=== PATIENT | male | born 1960 | race Caucasian/White ===

== ENCOUNTER 2022-12-27 17:19 | Emergency (ER) | payer MEDICARE, BC, SELFPAY ==
[2022-12-27 17:28] VITALS: BP 147/86; PULSE 82; RESP 16; TEMP 36.8; O2SAT 96; BMI 32.3
--- NOTE | 2022-12-27 18:03 | ED.SKABFB ---
HPI - Skin/Abscess/Foreign Bdy General Chief complaint: Skin/Abscess/Foreign Body Stated complaint: R left bite/swelling redness 3 days ago Time Seen by Provider: 12/27/22 17:45 History of Present Illness HPI narrative: This patient comes in with an area of redness that is increased on the right posterior lower leg in the mid calf region. He shows me a picture of how it looked a day or 2 before and it has increased in size. He does not report any injury event or insect bite. He states that it feels like a burning sensation and occasionally there is some itchy component. He does have some mild swelling. He does not report any fever and otherwise is in good health. Related Data Home Medications Medication Instructions Recorded Confirmed aspirin 81 mg capsule 81 mg PO DAILY 12/27/22 12/27/22 atorvastatin 40 mg tablet 40 mg PO DAILY 12/27/22 12/27/22 gabapentin 300 mg capsule 300 mg PO 3XD 12/27/22 12/27/22 meclizine 25 mg tablet 25 mg PO 3XD PRN vertigo 12/27/22 12/27/22 quetiapine 25 mg tablet 25 mg PO QPM PRN insomnia 12/27/22 12/27/22 valsartan 160 1 tab PO DAILY 12/27/22 12/27/22 mg-hydrochlorothiazide 25 mg tablet Previous Rx's Medication Instructions Recorded triamcinolone acetonide 0.1 % 1 applic topical BID #15 grams 12/27/22 topical cream Allergies Allergy/AdvReac Type Severity Reaction Status Date / Time bee venom protein (honey bee) Allergy Severe Anaphylaxis Verified 12/27/22 17:34 Review of Systems Status of ROS: Reports: 10 or more systems reviewed and unremarkable except as noted in History and below Narrative: Constitutional: No fevers, no weight gain or loss. Eyes: No discharge. No vision changes. HENT: No congestion, no sore throat, no ear pain. Cardiovascular: No chest pain, no palpitations. Respiratory: No shortness of breath, no wheezes, no cough. Gastrointestinal: No abdominal pain, no vomiting, no diarrhea. Genitourinary: No dysuria, no hematuria. Musculoskeletal: Normal range of motion. Skin: Area of redness with mild swelling on the right posterior calf. Neurological: No dizziness, weakness, sensory change, speech change. Endo/Heme/Allergies: No bruising or bleeding. No polydipsia. Pysch: no suicidality, no anxiety, no insomnia. All other systems reviewed and are negative. PFSH PFSH Social History Smoking Status: Former smoker Do you use any of these nicotine containing products: None Second hand tobacco smoke exposure: No How often do you have a drink containing alcohol: never AUDIT-C Alcohol total score: 0 Non-prescribed substance use: marijuana (any form) service: No Exam Narrative: Exam Narrative: Constitutional: Well-developed, well-nourished, no acute distress. HEENT: Normocephalic, atraumatic. Neck: Normal range of motion. Nontender. Supple. Heart: Intact distal pulses. Lungs: No chest discomfort. No wheezes, rhonchi, or rales. Abdomen: Nontender. Back: Normal range of motion. Extremities: Normal range of motion. No injury. Skin: Intact. Skin appears normal except for a approximately 8 cm diameter area of erythema on the right posterior calf midway between the ankle and the knee. There is no drainage or skin breakdown. There is some mild swelling in this area. Neurologic: No altered sensation. No weakness. Alert and oriented. Psychiatric: No suicidality. No anxiety or depression. No insomnia. Nursing notes and vitals signs are reviewed. Const: Vital Signs, click to edit/add: Vital Signs - 24 hr 12/27/22 17:28 Temperature 98.3 F Pulse Rate [Pulse Oximeter] 82 Respiratory Rate 16 Blood Pressure [Ri ght Upper Arm] 147/86 H Pulse Oximetry 96 Oxygen Delivery Me thod Room Air Course Vital Signs Vital signs: Initial Vital Signs Temperature 98.3 F 12/27/22 17:28 Temperature Source Temporal Artery Scan 12/27/22 17:28 Pulse Rate 82 12/27/22 17:28 Respiratory Rate 16 12/27/22 17:28 Blood Pressure 147/86 H 12/27/22 17:28 Blood Pressure Mean 106 H 12/27/22 17:28 Blood Pressure Position Sitting 12/27/22 17:28 Pulse Oximetry 96 12/27/22 17:28 Oxygen Delivery Method Room Air 12/27/22 17:28 Vital Signs Temperature 98.3 F 12/27/22 17:28 Pulse Rate 82 12/27/22 17:28 Respiratory Rate 16 12/27/22 17:28 Blood Pressure 147/86 H 12/27/22 17:28 Pulse Oximetry 96 12/27/22 17:28 Oxygen Delivery Method Room Air 12/27/22 17:28 Temperature 98.3 F 12/27/22 17:28 Pulse Rate 82 12/27/22 17:28 Respiratory Rate 16 12/27/22 17:28 Blood Pressure 147/86 H 12/27/22 17:28 Pulse Oximetry 96 12/27/22 17:28 Oxygen Delivery Method Room Air 12/27/22 17:28 MDM - Skin/Abscess/Foreign Bdy MDM Narrative Medical decision making narrative: This patient comes in with an area in his right lower leg that appears to be like cellulitis. It has been expanding over the past day or 2 but there is no sign of systemic symptoms. I did discuss lab and imaging options with the patient. The patient received a prescription for Keflex and triamcinolone cream. I did describe signs and symptoms that would indicate a need for return and re-evaluation. Discharge Plan Discharge Clinical Impression: Cellulitis Patient Disposition: Home, Self-Care Condition: Stable Additional Instructions: Take medication as needed and indicated. Follow up with MD return if symptoms are worsening. Prescriptions: New triamcinolone acetonide 0.1 % cream 1 applic topical BID Qty: 15 0RF No Action quetiapine 25 mg tablet 25 mg PO QPM PRN (Reason: insomnia) atorvastatin 40 mg tablet 40 mg PO DAILY meclizine 25 mg tablet 25 mg PO 3XD PRN (Reason: vertigo) gabapentin 300 mg capsule 300 mg PO 3XD valsartan-hydrochlorothiazide 160-25 mg tablet 1 tab PO DAILY aspirin 81 mg capsule 81 mg PO DAILY Stand Alone Forms: [employer] Info Instructions
--- OUTSIDE RECORDS SUMMARY | 2022-12-27 18:59 | XMS_ITS | Continuity of Care Document ---
Author Name Unknown Organization [facility] Address [address] [place] [address] Phone Care Team Providers Care Tin Stacker Name Role Phone Maikel Rizvi MD Unavailable Unavailable Allergies, Adverse Reactions, Alerts Substance Reaction Status Criticality No Known Allergies Active No Inform ation Medications Medication Instructions Dosage Effective Dates (start - stop) Status Comments RIOMET (unknown strength) Not Available - Active TIZANIDINE HCL (unknown strength) Not Available - Active NORTRIPTYLINE HCL (unknown strength) Not Available - Active FLEXERIL (unknown strength) Not Available - Active OXYCODONE HCL (unknown strength) Not Available - Active OXYCONTIN (unknown strength) Not Available - Active ALBUTEROL SULFATE (unknown strength) Not Available - Active ADVAIR DISKUS (unknown strength) Not Available - Active LYRICA (unknown strength) Not Available - Active LOVASTATIN (unknown strength) Not Available - Active ADVIL (unknown strength) Not Available - Active DIOVAN (unknown strength) Not Available - Active NEURONTIN (unknown strength) Not Available - Active ASPIRIN (unknown strength) Not Available - Active Procedures Procedure Date Office/Outpatient Visit,Est, Mod 2014 Office/Outpatient Visit,New, Mod 2012 Advance Directives Directive Yes / No Effective Date File Name No Information Encounters Encounter Description Practice Location Reason(s) For Visit Diagnoses Date Provider Providers Copied on Encounter [facility], [address], [place], [place], [id number], [place] tel:[phone] [facility] No Information Apr-0 7-201 6 Belkys Ko. [facility], [address], [place], [place], [id number] , [place]. [phone] Office/Outpa tient Visit,Est, Mod [facility], [address], [place], [place], [id number], [place] tel:[phone] [facility] - Rachel OVERWEIGHTHype rtension, UnspecifiedDeg eneration of lumbar or lumbosacral intervertebral discLumbar pain 5 Mehbod Amir. [facility], [address] [place] [address] [address], [place], [place], [id number] , [place]. [phone] Referring Provider: Dionisio Alcazar, [facility] [address] [place], [address]. tel:[phone] Office/Outpa tient Visit,New, Mod Z [facility], [address], [place], [address], [place] [phone] [facility] - Rachel AsthmaCOPDHype rtension, Unspecified 3 Mehbod Amir. [facility], [address], [place], [place], [id number] , [place]. [phone] Referring Provider: Dionisio Alcazar, [facility] [address] [place], [address]. tel:[phone] Family History Family Member Type Diagnosis Age At Onset No Information Payers Payer name Insurance type Covered libertarian ID Authoriza tion(s) Medicare [place] [id number] [facility] [id number] [facility] [id number] Social History Type Description Quantity Date Captured Comments Sex Male Smoking Status No Information Chief Complaint And Reason For Visit No Information Reason For Referral Reason For Referral No Information History Of Present Illness Encounter Date Complaint History Of Prese nt Illness No Information Functional Status Date Functional Assessmen t No Information Instructions Date Instruction Additional Infor matfroylan Weight Management Related to Ove rweight Exercise education Related to Un specified Essential Hypertension Assessments Type Assessment Date No Information Patient Care Teams Name Effective Dates (start - stop) Status Members No Information
== END 2022-12-27 18:45 | disposition home or self-care (01) ==
LOC: ED 18:57
PROVIDERS: Emergency Provider Emergency Medicine Emergency Medical Services
DX: L03.115 Cellulitis of right lower limb (principal)
CPT/HCPCS: 99283; 99284

== ENCOUNTER 2024-07-21 17:24 | Emergency (ER) | payer MEDICARE, BC, SELFPAY ==
[2024-07-21] VITALS (17 sets, daily range): BP systolic 133–160; BP diastolic 81–111; PULSE 86–121; RESP 8–24; TEMP 36.9; O2SAT 93–96; BMI 32.5
--- OUTSIDE RECORDS SUMMARY | 2024-07-21 17:27 | XMS_ITS | Continuity of Care Document ---
Author Organization [facility] Address [address] [place] [address] Phone Care Team Providers Care Trial Justice Name Role Phone Paul Irving MD Unavailable Unavailable Allergies, Adverse Reactions, Alerts Substance Reaction Status Criticality cider vinegar Swelling, Throat Closes Active No Information venom-honey bee anaphylaxis Active No Informati on Medications Medication Instructions Dosage Effective Dates (start - stop) Status Comments albuterol sulfate HFA 90 mcg/actuation aerosol inhaler inhale 2 puff by inhalation route every 4 - 6 hours as needed - Active aspirin 81 mg chewable tablet chew 1 tablet by oral route every day 81 MG - Active atorvastatin 40 mg tablet take 1 tablet by oral route every day 40 MG - Active Diovan HCT 160 mg-25 mg tablet take 1 tablet by oral route every day 1.00 tablet - Active Flovent HFA 44 mcg/actuation aerosol inhaler inhale 2 puff by inhalation route 2 times every day - Active EpiPen 2-Franko 0.3 mg/0.3 mL (1:1,000) injection,auto-injec tor inject 0.3 milliliter by intramuscular route once as needed for anaphylaxis 0.3 MG - Active Procedures Procedure Date Pt Seen-No Charge, Per Physician 2021 Global Postop Visit Implant SCS IPG Implant SCS IPG Anes- All Integ Neck Incl Subq 21 Trans Epid Cerv/Thor 1 level Trans Epid Cerv/Thor each addl 21 Inj Anes Epidur; Cerv/thor-ea 1 Inj Anes Epidur; Cerv/thor 1 L 21 Methylprednisolone Acetate-40 1 Change Control for Diagnosis(s) 021 Change Control for Pharmaceuticals Est Pt Eval 25 Min Trans Epid Cerv/Thor 1 level Trans Epid Cerv/Thor each addl 20 Moderate Sedation (older Than 5 Years) A Change Control for Procedure(s): 2019 Inj Anes Epidur; Cerv/thor 1 L 20 Inj Anes Epidur; Cerv/thor-ea 0 Methylprednisolone Acetate-40 0 Change Control for Diagnosis(s) 020 Change Control for Pharmaceuticals Est Pt Eval 25 Min Toxicology Test Group C PT Eval - Low Complexity Therapeutic Activities Mobility: Walking & Moving Around, Goal Mobility: Walking & Moving Around, Curre nt Mobility: Walking & Moving Around, Disch arge Est Pt Eval 25 Min Est Pt Eval 25 Min Global Postop Visit Revise/Remove SCS IPG Stim Analysis W Reprog Revision Of Spinal Neurostimulator [facility] Revision Of Spinal Neurostimulator [facility] Revise/Remove SCS IPG Adverse Events did not occur Revision Of Spinal Neurostimulator [facility] Revise/Remove SCS (IPG) Est Pt Eval 25 Min No Charge Est Pt Eval 25 Min Toxicology Test Group C Est Pt Eval 25 Min Global Postop Visit Implant SCS IPG Revise/Remove SCS IPG Fluoro Guidance - Spine Implant SCS IPG Est Pt Eval 25 Min Est Pt Eval 15 Min Est Pt Eval 25 Min Est Pt Eval 15 Min Global Postop Visit Stim Analysis W Reprog Implant SCS Epi Lead Implant SCS IPG Implant SCS Epidi Lead Implant SCS Epidi Lead Implant SCS Epidi Lead Implant SCS Epidi Lead Implant SCS IPG Implant SCS IPG Est Pt Eval 25 Min Est Pt Eval 25 Min Est Pt Eval 25 Min Global Postop Visit Stim Analysis W Reprog Implant SCS Epi Lead Moderate Sedation (older Than 5 Years) J Moderate Sedation (older Than 5 Years) A ddl 15 Min Implant SCS Epidi Lead Implant SCS Epidi Lead Implant SCS Epidi Lead Implant SCS Epidi Lead Moderate Sedation (older Than 5 Years) J Moderate Sedation (older Than 5 Years) A ddl 15 Min Est Pt Eval 25 Min Moderate Sedation (older Than 5 Years) J Dx Lumbar Disco Moderate Sedation (older Than 5 Years) A ddl 15 Min Diskography Lumbar-rad S & I Dx Lumbar Disco Dx Lumbar Disco Dx Lumbar Disco Adverse Events did not occur Prophylactic IV antibiotic initiated on time DX Lumbar Disco DX Lumbar Disco DX Lumbar Disco Lumbar Disco Radiology Lumbar Disco Radiology Lumbar Disco Radiology Moderate Sedation (older Than 5 Years) J Est Pt Eval 25 Min PT Eval - Low Complexity Therapeutic Exercise Neuromuscular Re-education Mobility: Walking & Moving Around, Curre nt Mobility: Walking & Moving Around, Goal Est Pt Eval 25 Min Est Pt Eval 25 Min Est Pt Eval 25 Min Toxicology Test Group B RF Cervical/Thoracic Single Level RF Cervical/Thoracic Addt'l Level RF Cervical/Thoracic Single Level RF Cervical/Thoracic Addt'l Level Adverse Events did not occur Patient without preop order for prophyla ctic IV an Est Pt Eval 25 Min RF Cervical/Thoracic Single Level RF Cervical/Thoracic Addt'l Level RF Cervical/Thoracic Addt'l Level RF Cervical/Thoracic Single Level RF Cervical/Thoracic Single Level RF Cervical/Thoracic Addt'l Level Adverse Events did not occur Patient without preop order for prophyla ctic IV an RF Cervical/Thoracic Single Level RF Cervical/Thoracic Addt'l Level Est Pt Eval 25 Min Psychiatric Diagnostic Evaluation Inj Anes Facet Jt; Cerv/thor-2nd Level O Inj Anes Facet Jt; Cerv/thor-1st Level O Inj Anes Facet Jt; Cerv/thor-1st Level O Inj Anes Facet Jt; Cerv/thor-1st Level O Inj Anes Facet Jt; Cerv/thor-2nd Level O Adverse Events did not occur Patient without preop order for prophyla ctic IV an Inj Anes Facet Jt; Cerv/thor-2nd Level O Inj Anes Facet Jt; Cerv/thor-1st Level O Inj Anes Facet Jt; Cerv/thor-2nd Level O Inj Anes Facet Jt; Cerv/thor-2nd Level S Inj Anes Facet Jt; Cerv/thor-1st Level S Inj Anes Facet Jt; Cerv/thor-1st Level S Inj Anes Facet Jt; Cerv/thor-1st Level S Inj Anes Facet Jt; Cerv/thor-2nd Level S Inj Anes Facet Jt; Cerv/thor-2nd Level S Phys Therap Eval Therapeutic Procedure Neuromuscular Re-education Mobility: Walking & Moving Around, Goal Mobility: Walking & Moving Around, Curre nt Mobility: Walking & Moving Around, Disch arge Est Pt Eval 25 Min Inj Anes Facet Jt; Cerv/thor-1st Level S Inj Anes Facet Jt; Cerv/thor-2nd Level S Est Pt Eval 25 Min Inj Not Lytic-epidur; Cerv/tho 16 Adverse Events did not occur Patient without preop order for prophyla ctic IV an Epid/SAB Cerv/Thor Est Pt Eval 25 Min Inj Not Lytic-epidur; Cerv/tho 16 Adverse Events did not occur Patient without preop order for prophyla ctic IV an Est Pt Eval 25 Min Epid/SAB Cerv/Thor Est Pt Eval 15 Min Est Pt Eval 15 Min Inj Not Lytic-epidur; Cerv/tho 15 Adverse Events did not occur Patient without preop order for prophyla ctic IV an Epid/SAB Cerv/Thor Est Pt Eval 15 Min Pain Assessment And Follow Up Plan Docum ented Inj Not Lytic-epidur; Cerv/tho 15 IV Cons Sed First 30M Fluoro Guidance - Spine Inj Not Lytic-epidur; Cerv/tho 15 Adverse Events did not occur Patient without preop order for prophyla ctic IV an Epid/SAB Cerv/Thor Inj Anes Epidur; Lumb/sac 1 Le 15 IV Cons Sed First 30M Inj Anes Epidur; Lumb/sac 1 Le 15 Phys Therap Eval Mobility: Walking & Moving Around, Goal Mobility: Walking & Moving Around, Curre nt Inj Anes Epidur; Lumb/sac 1 Le 15 IV Cons Sed First 30M Inj Anes Epidur; Lumb/sac 1 Le 15 Adverse Events did not occur Patient without preop order for prophyla ctic IV an Inj Anes Epidur; Lumb/sac 1 Le 15 New Pt Eval 45 Min Drug screen, other than chromatographic Pain Assessment And Follow Up Plan Docum ented Advance Directives Directive Yes / No Effective Date File Name Resuscitation Not Answered N/A N/A Life Support Not Answered N/A N/A Intubation Not Answered N/A N/A Antibiotics Not Answered N/A N/A IV Fluid Support Not Answered N/A N/A Tube Feed Not Answered N/A N/A Other Directive N/A N/A WARNING:The information contained in this section is historical and is provided for information only and does not constitute a legal document or any assurance that the information is still accurate. Please verify the information with the bennett of the legal document before using it for clinical purposes. Encounters Encounter Description Practice Location Reason(s) For Visit Diagnoses Date Provider Providers Copied on Encounter DREW Marsh, [address], [place], [place], [id number], [place] tel:[phone] [facility] No Information 5 Maria Fernanda Miller. [address], [place], [address], [place]. tel:[phone] Referring Provider: Brent Spence V, [address] [place] [address] [place], [address]. tel:[phone] [facility], [address], [place], [place], [address], [place] tel:[phone] [facility] Postlaminectom y syndrome, not elsewhere classified Fe 2 RN RN. [address], [place], [address], [place]. tel:[phone] Referring Provider: Ancelmo Meraz IV, [address] [place] [address], [address]. tel:[phone] [facility], [address], [place], [address], [place] tel:[phone] [facility] back pain (chief complaint) Postlaminectom y syndrome, not elsewhere classifiedRadi culopathy, thoracic region 1 RN RN. [address], [place], [address], [place]. tel:[phone] Referring Provider: Ancelmo Meraz IV, [facility] [address] [place] [address], [address]. tel:[phone] [facility], [address], [place], [address], [place] tel:[phone] [facility] No Information 1 Shasta Stokes. [address], [address], [place]. tel:[phone] Referring Provider: Ancelmo Meraz IV, [facility] [address] [place] [address], [address]. tel:[phone] [facility], [address], [place], [address], [place] tel:[phone] [facility] back pain (chief complaint) Radiculopathy, thoracic regionOther intervertebral disc degeneration, thoracic regionPain in thoracic spineOpioid dependence, uncomplicated 1 [facility]. [address], [place], [place], [address], [place]. tel:[phone] Referring Provider: Sherman Jensen, [address], [place], [address] . tel:[phone] [facility], [address], [place], [place], [address], [place] tel:[phone] [facility] No Information 1 Jono Reynolds. [address], [place], [place], [address], [place]. tel:[phone] Referring Provider: Sherman Jensen, [address], [place], [address] . tel:[phone] [facility], [address], [place], [place], [address], [place] tel:[phone] [facility] No Information 1 Maria Fernanda Whitaker. [address], [place], [place], [address], [place]. tel:[phone] Referring Provider: Sherman Jensen, [address], [place], [address] . tel:[phone] [facility], [address], [place], [address], [place] tel:[phone] [facility] right shoulder pain (chief complaint) Radiculopathy, thoracic regionPain in thoracic spineRadiculop athy, thoracic regionPain in thoracic spine 1 [facility]. [address], [place], [place], [address], [place]. tel:[phone] Referring Provider: Sherman Jensen, [address], [place], [address] . tel:[phone] Est Pt Eval 25 Min [facility], [address], [place], [place], [address], [place] tel:[phone] [facility] back pain (chief complaint) Radiculopathy, thoracic regionOther spondylosis with radiculopathy, lumbar region 1 Lincoln George. [address], [place], [address], [place]. tel:[phone] Referring Provider: Ancelmo Meraz IV, [address] [place] [address], [place], [address]. tel:[phone] [facility], [address], [place], [address], [place] tel:[phone] [facility] back pain (chief complaint) Radiculopathy, thoracic regionIntvrt disc disorders w radiculopathy, thoracic regionPain in thoracic spine 0 [facility]. [address], [place], [place], [address], [place]. tel:[phone] Referring Provider: Sherman Jensen, [address], [place], [address] . tel:[phone] [facility], [address], [place], [place], [address], [place] tel:[phone] [facility] No Information 0 Maria Fernanda Whitaker. [address], [place], [place], [address], [place]. tel:[phone] Referring Provider: Sherman Jensen, [address], [place], [address] . tel:[phone] Est Pt Eval 25 Min [facility], [address], [place], [address], [place] tel:[phone] [facility] back pain (chief complaint) Pain in thoracic spinePostlamin ectomy syndrome, not elsewhere classified 0 Maria Fernanda Miller. [address], [place], [address], [place]. tel:[phone] Referring Provider: Ancelmo Meraz IV, [facility] [address] [place] [address], [place], [address]. tel:[phone] [facility], [address], [place], [address], [place] tel:[phone] [facility] No Information 0 Maria Fernanda Miller. [address], [place], [address], [place]. tel:[phone] Referring Provider: Ancelmo Meraz IV, [facility] [address] [place] [address], [place], [address]. tel:[phone] [facility], [address], [place], [address], [place] tel:[phone] [facility] [address] Pain in thoracic spinePain in thoracic spinePain in thoracic spine Mar-2 3-201 8 Ilana Ledesma. [address], [place], [address], [place]. tel:[phone] Referring Provider: Jane Neal, [address], [place], [address] . tel:[phone] Est Pt Eval 25 Min [facility], [address], [place], [place], [address], [place] tel:[phone] [facility] back pain (chief complaint) Postlaminectom y syndrome, not elsewhere classifiedOthe r cervical disc displacement at C6-C7 levelOther intervertebral disc degeneration, thoracic regionOther intervertebral disc degeneration, lumbar regionOther intervertebral disc degeneration, lumbosacral regionLong term (current) use of opiate analgesic 8 No Information Referring Provider: Jane Neal, [address], [place], [address] . tel:[phone] Est Pt Eval 25 Min [facility], [address], [place], [place], [address], [place] tel:[phone] [facility] back pain (chief complaint) bilateral neck pain (chief complaint) Cervical disc disorder at C6-C7 level with radiculopathyO ther intervertebral disc degeneration, thoracic regionOther intervertebral disc degeneration, lumbar regionOther intervertebral disc degeneration, lumbosacral regionLong term (current) use of opiate analgesicPostl aminectomy syndrome, not elsewhere classified 8 No Information Referring Provider: Jane Neal, [address], [place], [address] . tel:[phone] [facility], [address], [place], [place], [address], [place] tel:[phone] [facility] back pain (chief complaint) back pain (chief complaint) Postlaminectom y syndrome, not elsewhere classified 8 Maria Fernanda Whitaker. [address], [place], [place], [address], [place]. tel:[phone] Referring Provider: Jane Neal, [address], [place], [address] . tel:[phone] [facility], [address], [facility] [address], [place], [address], [place] tel:[phone] [facility] back pain (chief complaint) bilateral neck pain (chief complaint) Oth complication of nervous system prosth dev/grft, sequelaPostlam inectomy syndrome, not elsewhere classifiedIntv rt disc disorders w radiculopathy, thoracic regionOpioid dependence, uncomplicated [facility]. [address], [place], [place], [address], [place]. tel:[phone] Referring Provider: Sherman Jensen, [address], [place], [address] . tel:[phone] [facility], [address], [place], [place], [address], [place] tel:[phone] [facility] No Information 8 Maria Fernanda Whitaker. [address], [place], [place], [address], [place]. tel:[phone] Referring Provider: Sherman Jensen, [address], [place], [address] . tel:[phone] Est Pt Eval 25 Min [facility], [address], [place], [place], [address], [place] tel:[phone] [facility] bilateral neck pain (chief complaint) Postlaminectom y syndrome, not elsewhere classifiedCerv ical disc disorder at C6-C7 level with radiculopathyO ther intervertebral disc degeneration, thoracic regionOther intervertebral disc degeneration, lumbar regionOther intervertebral disc degeneration, lumbosacral regionLong term (current) use of opiate analgesic No Information Referring Provider: Jane Neal, [address], [place], [address] . tel:[phone] [facility], [address], [address] [facility] [address], [place], [address], [place] tel:[phone] [facility] No Information Darrian Ward. [address], [place], [place], [address], [place]. tel:[phone] Referring Provider: Aamir Downey, [address] [facility] , [place], [address]. tel:[phone] Est Pt Eval 25 Min [facility], [address], [place], [place], [address], [place] tel:[phone] [facility] bilateral neck pain (chief complaint) Postlaminectom y syndrome, not elsewhere classifiedCerv ical disc disorder at C6-C7 level with radiculopathyO ther intervertebral disc degeneration, thoracic regionOther intervertebral disc degeneration, lumbar regionOther intervertebral disc degeneration, lumbosacral regionLong term (current) use of opiate analgesic No Information Est Pt Eval 25 Min [facility], [address], [place], [place], [address], [place] tel:[phone] [facility] back pain (chief complaint) Postlaminectom y syndrome, not elsewhere classifiedCerv ical disc disorder at C6-C7 level with radiculopathyO ther intervertebral disc degeneration, thoracic regionOther intervertebral disc degeneration, lumbar regionOther intervertebral disc degeneration, lumbosacral regionLong term (current) use of opiate analgesic 7 No Information Referring Provider: Jane Neal, [address] [facility] [address], [place], [address] . tel:[phone] [facility], [address], [place], [place], [address], [place] tel:[phone] [facility] back pain (chief complaint) Postlaminectom y syndrome, not elsewhere classifiedRadi culopathy, cervical region RN RN. [address], [place], [place], [address], [place]. tel:[phone] Referring Provider: Jane Neal, [address] [facility] [address], [place], [address] . tel:[phone] [facility], [address], [address], [place], [address], [place] tel:[phone] [facility] back pain (chief complaint) bilateral neck pain (chief complaint) Cervical disc disorder at C6-C7 level with radiculopathyO ther cervical disc displacement at C6-C7 levelCervical disc disorder at C6-C7 level with radiculopathyO ther cervical disc displacement at C6-C7 level 7 Ace Rutledge. [address], [facility] [place], [address], [place]. tel:[phone] Referring Provider: Aamir Downey, [address] [facility] [place], [address]. tel:[phone] [facility], [address], [place], [place], [address], [place] tel:[phone] [facility] No Information Samuel Rutledge. [address], [facility] [place], [address], [place]. tel:[phone] Referring Provider: Aamir Downey, [address] [facility] [place], [address]. tel:[phone] Est Pt Eval 25 Min [facility], [address], [place], [place], [address], [place] tel:[phone] [facility] back pain (chief complaint) Other intervertebral disc degeneration, thoracic regionOther intervertebral disc degeneration, lumbar regionOther intervertebral disc degeneration, lumbosacral regionLong term (current) use of opiate analgesicPostl aminectomy syndrome, not elsewhere classifiedCerv ical disc disorder at C6-C7 level with radiculopathy 7 No Information Referring Provider: Jane [place], [address], [place], [address] . tel:[phone] Est Pt Eval 15 Min [facility], [address], [place], [place], [address], tel:[phone] [facility] back pain (chief complaint) Other intervertebral disc degeneration, lumbar regionOther intervertebral disc degeneration, lumbosacral regionLong term (current) use of opiate analgesicPostl aminectomy syndrome, not elsewhere classifiedOthe r cervical disc displacement at C6-C7 levelOther intervertebral disc degeneration, thoracic region 7 No Information Referring Provider: Jane Neal, [address], [place], [address] . tel:[phone] Est Pt Eval 25 Min [facility], [address], [place], [place], [address], [place] tel:[phone] [facility] bilateral neck pain (chief complaint) back pain (chief complaint) FDC (current) use of opiate analgesicPostl aminectomy syndrome, not elsewhere classifiedOthe r cervical disc displacement at C6-C7 levelOther intervertebral disc degeneration, thoracic regionOther intervertebral disc degeneration, lumbar regionOther intervertebral disc degeneration, lumbosacral region 7 No Information Referring Provider: Jane Neal, [address], [place], [address] . tel:[phone] Est Pt Eval 15 Min [facility], [address], [place], [place], [address], tel:[phone] [facility] back pain (chief complaint) Other specified dorsopathies, lumbosacral regionOther intervertebral disc degeneration, lumbar regionOther intervertebral disc degeneration, lumbosacral regionLong term (current) use of opiate analgesicPostl aminectomy syndrome, not elsewhere classifiedOthe r cervical disc displacement at C6-C7 levelOther intervertebral disc degeneration, thoracic region No Information Referring Provider: Jane Neal, [address] [facility] [address], [place], [address] . tel:[phone] [facility], [address], [place], [place], [address], [place] tel:[phone] [facility] back pain (chief complaint) bilateral neck pain (chief complaint) Postlaminectom y syndrome, not elsewhere classified Sep- RN RN. [address] [facility] [address], [address], [place], [place], [address], [place]. tel:[phone] Referring Provider: Jane Neal, [address] [facility] [address], [place], [address] . tel:[phone] [facility], [address] [facility], [address], [place], [address], [place] tel:[phone] [facility] back pain (chief complaint) Postlaminectom y syndrome, not elsewhere classifiedOthe r spondylosis with radiculopathy, lumbar regionOther cervical disc disord, mid-cervical region, unsp levelOpioid dependence, uncomplicated Sep- [facility]. [address] [facility] [address], [place], [place], [address], [place]. tel:[phone] Referring Provider: Sherman Jensen, [address], [place], [address] . tel:[phone] [facility], [address] [facility] [address], [place], [place], [address], [place] tel:[phone] [facility] No Information Dec- Maria Fernanda Whtiaker. [address], [place], [place], [address], [place]. tel:[phone] Referring Provider: Sherman Jensen, [address], [place], [address] . tel:[phone] Est Pt Eval 25 Min [facility], [address] [facility] [address], [place], [place], [address], [place] tel:[phone] [facility] back pain (chief complaint) Postlaminectom y syndrome, not elsewhere classifiedOthe r cervical disc displacement at C6-C7 levelOther intervertebral disc degeneration, thoracic regionOther specified dorsopathies, lumbosacral regionOther intervertebral disc degeneration, lumbar regionOther intervertebral disc degeneration, lumbosacral regionLong term (current) use of opiate analgesic Dec- No Information Referring Provider: Jane Neal, [address] [facility] [address], [place], [address] . tel:[phone] Est Pt Eval 25 Min [facility], [address] [facility] [address], [place], [place], [address], [place] tel:[phone] [facility] Other intervertebral disc degeneration, thoracic regionOther specified dorsopathies, lumbosacral regionOther intervertebral disc degeneration, lumbar regionOther intervertebral disc degeneration, lumbosacral regionLong term (current) use of opiate analgesicPostl aminectomy syndrome, not elsewhere classifiedOthe r cervical disc displacement at C6-C7 level No Information Referring Provider: Jane Neal, [address] [facility] [address], [place], [address] . tel:[phone] Est Pt Eval 25 Min [facility], [address], [place], [place], [address], [place] tel:[phone] [facility] Postlaminectom y syndrome, not elsewhere classifiedOthe r cervical disc displacement at C6-C7 levelOther intervertebral disc degeneration, thoracic regionWeakness Other specified dorsopathies, lumbosacral regionOther intervertebral disc degeneration, lumbar regionOther intervertebral disc degeneration, lumbosacral regionLong term (current) use of opiate analgesic No Information Referring Provider: Jane Neal, [address] [facility] [address], [place], [address] . tel:[phone] [facility], [address] [facility] [address], [place], [place], [address], [place] tel:[phone] [facility] Postlaminectom y syndrome, not elsewhere classified RN RN. [address] [facility] [address], [address], [place], [place], [address], [place]. tel:[phone] Referring Provider: Jane Neal, [address] [facility] [address], [place], [address] . tel:[phone] [facility], [address] [facility], [address], [place], [address], [place] tel:[phone] [facility] Cervical disc disorder at C6-C7 level w radiculopathyP ostlaminectomy syndrome, not elsewhere classifiedInte rvertebral disc disorders w radiculopathy, lumbar regionLumbosac ral root disorder [facility]. [address] [facility] [address], [place], [place], [address], [place]. tel:[phone] Referring Provider: Sherman Jensen, [address], [place], [address] . tel:[phone] [facility], [address], [place], [place], [address], [place] tel:[phone] [facility] No Information 7 Maria Fernanda Whitaker. [address], [place], [place], [address], [place]. tel:[phone] Referring Provider: Sherman Jensen, [address], [place], [address] . tel:[phone] Est Pt Eval 25 Min [facility], [facility], [address] [facility] [address], [place], [place], [address], [place] tel:[phone] [facility] Postlaminectom y syndrome, not elsewhere classifiedOthe r cervical disc displacement, at C6-C7 levelOther intervertebral disc degeneration, thoracic regionOther specified dorsopathies, lumbar regionOther specified dorsopathies, lumbosacral regionOther intervertebral disc degeneration, lumbar regionOther intervertebral disc degeneration, lumbosacral regionLong term (current) use of opiate analgesic No Information Referring Provider: Jane Neal, [address] [facility] [address], [place], [address] . tel:[phone] [facility], [address], [address], [place] tel:[phone] [facility] Low back painOther intervertebral disc degeneration, lumbar region [facility]. [address] [facility] [address], [place], [place], [address], [place]. tel:[phone] Referring Provider: Sherman Jensen, [address], [place], [address] . tel:[phone] [facility], [address] [facility] [address], [place], [place], [address], [place] tel:[phone] [facility] No Information 7 Maria Fernanda Whitaker. [address], [place], [place], [address], [place]. tel:[phone] Referring Provider: Sherman Jensen, [address], [place], [address] . tel:[phone] Est Pt Eval 25 Min [facility], [address] [facility] [address], [place], [place], [address], tel:[phone] [facility] Postlaminectom y syndrome, not elsewhere classifiedPain in thoracic spineOther intervertebral disc degeneration, thoracic regionOther intervertebral disc degeneration, lumbar regionOther intervertebral disc degeneration, lumbosacral regionOther specified dorsopathies, lumbar regionOther specified dorsopathies, lumbosacral regionLong term (current) use of opiate analgesic No Information Referring Provider: Jane Neal, [address], [place], [address] . tel:[phone] [facility], [address], [place], [place], [address], tel:[phone] [facility] 7[address] No Information [facility]. [address], [place], [place], [address], [place]. tel:[phone] Referring Provider: Jane Neal, [address], [place], [address] . tel:[phone] Est Pt Eval 25 Min [facility], [address], [place], [place], [address], [place] tel:[phone] [facility] Other intervertebral disc degeneration, lumbar regionOther intervertebral disc degeneration, lumbosacral regionOther specified dorsopathies, lumbar regionOther specified dorsopathies, lumbosacral regionLong term (current) use of opiate analgesicPostl aminectomy syndrome, not elsewhere classifiedOthe r specified dorsopathies, thoracic regionOther intervertebral disc degeneration, thoracic region 7 No Information Referring Provider: Jane Neal, [address], [place], [address] . tel:[phone] Est Pt Eval 25 Min [facility], [address], [place], [place], [address], [place] tel:[phone] [facility] Postlaminectom y syndrome, not elsewhere classifiedOthe r specified dorsopathies, thoracic regionOther intervertebral disc degeneration, thoracic regionOther intervertebral disc degeneration, lumbar regionOther intervertebral disc degeneration, lumbosacral regionOther specified dorsopathies, lumbar regionOther specified dorsopathies, lumbosacral regionLong term (current) use of opiate analgesic 7 No Information Referring Provider: Jane Neal, [address] [facility] [address], [place], [address] . tel:[phone] Est Pt Eval 25 Min [facility], [address] [facility] [address], [place], [place], [address], tel:[phone] [facility] Other specified dorsopathies, lumbar regionOther specified dorsopathies, lumbosacral regionLong term (current) use of opiate analgesicPostl aminectomy syndrome, not elsewhere classifiedOthe r specified dorsopathies, thoracic regionOther intervertebral disc degeneration, thoracic regionOther intervertebral disc degeneration, lumbar regionOther intervertebral disc degeneration, lumbosacral region 6 No Information [facility], [address] [facility], [address], [place], [address], tel:[phone] [facility] Spondylosis without myelopathy or radiculopathy, thoracic regionOther specified dorsopathies, thoracic regionOther intervertebral disc displacement, thoracic region 6 No Information Est Pt Eval 25 Min [facility], [address], [place], [place], [address], [place] tel:[phone] [facility] Postlaminectom y syndrome, not elsewhere classifiedOthe r intervertebral disc degeneration, thoracic regionSpinal stenosis, cervical regionCervical giaOther specified dorsopathies, thoracic regionSpinal stenosis, lumbar region 6 Carlos Coronel [address] [facility] [address], [facility], [place], [address], [place]. tel:[phone] Referring Provider: Jane Neal, [address] [facility] [address], [place], [address] . tel:[phone] YAMIL Marsh, [address], [place], [place], [address], [place] tel:[phone] [facility] No Information No Information [facility], [address] [facility], [address], [place], [address], [place] tel:[phone] [facility] Spondylosis w/o myelopathy or radiculopathy, thoracic regionOther specified dorsopathies, thoracic region 6 No Information DREW Marsh, [address], [place], [place], [address], [place] tel:[phone] [facility] No Information No Information Est Pt Eval 25 Min YAMIL Marsh, [address] [facility] [address], [place], [place], [address], [place] tel:[phone] [facility] Postlaminectom y syndrome, not elsewhere classifiedOthe r cervical disc degeneration, cervicothoraci c regionOther intervertebral disc degeneration, thoracic regionSpinal stenosis, cervical regionOther specified dorsopathies, thoracic regionOther intervertebral disc degeneration, lumbar regionOther intervertebral disc degeneration, lumbosacral regionSpinal stenosis, Lumbar regionOther specified dorsopathies lumbar regionOther specified dorsopathies lumbosacral region 6 No Information Referring Provider: Jane Neal, [address] [facility] [address], [place], [address] . tel:[phone] [facility] YAMIL Marsh, [address] [facility] [address], [place], [place], [address], [place] tel:[phone] Mili [facility] 7390 No Information Rodrigo Ivory. [address] [facility], [address], [place], [place], [address], [place]. tel:[phone] Referring Provider: Jane Neal, [address] [facility] [address], [place], [address] . tel:[phone] [facility], [address], [place], [address], [place] tel:[phone] [facility] Other specified dorsopathies, thoracic regionSpondylo sis w/o myelopathy or radiculopathy, thoracic region Oct-0 7- 6 No Information YAMIL Marsh, [address] [facility] [address], [place], [place], [address], [place] tel:[phone] [facility] No Information 6 No Information [facility], [address] [facility], [address], [place], [address], [place] tel:[phone] [facility] Other specified dorsopathies, thoracic regionSpondylo sis without myelopathy or radiculopathy, thoracic region Sep-1 - 6 No Information DREW Marsh, [address], [place], [place], [address], [place] tel:[phone] Mili [facility] 7390 No Information Sep-1 6 Volodymyr Lara. [address] [facility], [address], [place], [place], [address], [place]. tel:[phone] Referring Provider: Jane Neal, [address] [facility] [address], [place], [address] . tel:[phone] Est Pt Eval 25 Min DREW Marsh, [address], [place], [place], [address], [place] tel:[phone] [facility] (current) use of opiate analgesicOther specified dorsopathies lumbosacral regionOther specified dorsopathies lumbar regionSpinal stenosis, Lumbar regionOther intervertebral disc degeneration, lumbosacral regionOther intervertebral disc degeneration, lumbar regionOther intervertebral disc degeneration, thoracic regionSpinal stenosis, cervical regionOther cervical disc degeneration, cervicothoraci c regionPostlami nectomy syndrome, not elsewhere classified 6 No Information Referring Provider: Jane Neal, [address] [facility] [address], [place], [address] . tel:[phone] [facility], [address] [facility] [address], [place], [place], [address], [place] tel:[phone] [facility] No Information No Information Est Pt Eval 25 Min [facility], [address] [facility] [address], [place], [place], [address], [place] tel:[phone] [facility] Spinal stenosis, cervical regionOther intervertebral disc degeneration, thoracic regionOther intervertebral disc degeneration, lumbar regionOther intervertebral disc degeneration, lumbosacral regionSpinal stenosis, Lumbar regionOther specified dorsopathies lumbar regionOther specified dorsopathies lumbosacral regionLong term (current) use of opiate analgesicPostl aminectomy syndrome, not elsewhere classifiedOthe r cervical disc degeneration, cervicothoraci c region 6 No Information Referring Provider: Jane Neal, [address] [facility] [address], [place], [address] . tel:[phone] [facility], [address] [facility], [address], [place], [address], [place] tel:[phone] [facility] Other intervertebral disc degeneration, thoracic regionOther intervertebral disc displacement, thoracic region No Information [facility], [address], [place], [place], [address], [place] tel:[phone] [facility] No Information No Information Est Pt Eval 25 Min [facility], [address], [place], [place], [address], [place] tel:[phone] [facility] Postlaminectom y syndrome, not elsewhere classifiedOthe r cervical disc degeneration, cervicothoraci c regionSpinal stenosis, cervical regionOther intervertebral disc degeneration, thoracic regionOther intervertebral disc degeneration, lumbar regionOther intervertebral disc degeneration, lumbosacral regionSpinal stenosis, Lumbar regionOther specified dorsopathies lumbar regionOther specified dorsopathies lumbosacral regionLong term (current) use of opiate analgesic 6 No Information Referring Provider: Jane Neal, [address] [facility] [address], [place], [address] . tel:[phone] [facility], [address] [facility], [facility] [address], [place], [address], [place] tel:[phone] [facility] Other intervertebral disc degeneration, lumbar regionPostlami nectomy syndrome, not elsewhere classifiedOthe r intervertebral disc degeneration, thoracic regionPain in thoracic spine No Information Est Pt Eval 25 Min [facility], [address] [facility] [address], [place], [place], [address], [place] tel:[phone] [facility] Spinal stenosis, cervical regionOther intervertebral disc degeneration, thoracic regionSpinal stenosis, Lumbar regionSpinal stenosis, Lumbosacral regionOther intervertebral disc degeneration, lumbar regionOther intervertebral disc degeneration, lumbosacral regionOther specified dorsopathies lumbar regionLong term (current) use of opiate analgesicPostl aminectomy syndrome, not elsewhere classifiedOthe r cervical disc degeneration, mid-cervical region No Information Ancelmo Meraz IV. [facility], [address] [facility] [address], [place], [place], [address], tel:[phone] [facility] No Information No Information Est Pt Eval 15 Min [facility], [address] [facility] [address], [place], [place], [address], [place] tel:[phone] [facility] Postlaminectom y syndrome, not elsewhere classifiedPain in thoracic spineOther intervertebral disc degeneration, lumbar region 6 Openda Reid. [address], [place], [address], [place]. tel:[phone] Referring Provider: Jane Neal, [address], [place], [address] . tel:[phone] Est Pt Eval 15 Min [facility], [address], [place], [place], [address], [place] tel:[phone] [facility] Postlaminectom y syndrome, not elsewhere classifiedOthe r intervertebral disc degeneration, lumbar regionPain in thoracic spine [facility] Reid. [address], [place], [address], [place]. tel:[phone] Referring Provider: Jane Neal, [address], [place], [address] . tel:[phone] [facility], [address], [place], [address], [place] tel:[phone] [facility] Other intervertebral disc degeneration, lumbar regionPain in thoracic spine No Information [facility], [address], [place], [place], [address], [place] tel:[phone] [facility] No Information No Information Referring Provider: Jane Neal, [address], [place], [address] . tel:[phone] Est Pt Eval 15 Min [facility], [address], [place], [place], [address], [place] tel:[phone] [facility] Pain in thoracic spineOther intervertebral disc degeneration, lumbar regionOpioid dependence, uncomplicated [facility] Reid. [address], [place], [address], [place]. tel:[phone] Referring Provider: Jane Neal, [address], [place], [address] . tel:[phone] [facility], [address], [place], [address], [place] tel:[phone] [facility] Pain in thoracic spine No Information [facility], [address], [place], [place], [address], [place] tel:[phone] [facility] No Information No Information Referring Provider: Jane Neal, [address], [place], [address] . tel:[phone] [facility], [address], [place], [address], [place] tel:[phone] [facility] Intervertebral disc disorders with radiculopathy, lumbosacral regionOther spondylosis with radiculopathy, lumbar region No Information [facility], [address], [place], [place], [address], [place] tel:[phone] [facility] No Information No Information Referring Provider: Jane Neal, [address], [place], [address] . tel:[phone] [facility], [address], [place], [place], [address], [place] tel:[phone] [facility] 7390 No Information 5 Volodymyr Lara. [address] [facility], [address], [place], [place], [address], [place]. tel:[phone] Referring Provider: Jane Neal, [address] [facility] [address], [place], [address] . tel:[phone] [facility], [address] [facility], [facility] [address], [place], [address], [place] tel:[phone] [facility] Other spondylosis with radiculopathy, lumbar regionInterver tebral disc disorders with radiculopathy, lumbosacral region 5 No Information [facility], [address] [facility] [address], [place], [place], [address], [place] tel:[phone] [facility] No Information 5 No Information New Pt Eval 45 Min [facility], [address] [facility] [address], [place], [place], [address], [place] tel:[phone] [facility] Pain in thoracic spineOther spondylosis with radiculopathy, lumbar regionInterver tebral disc disorders with radiculopathy, lumbosacral region 5 No Information Family History Family Member Type Diagnosis Age At Onset Paternal grandfather Problem (finding) Cancer Paternal grandfather Problem (finding) Diabetes mellit us Son Problem (finding) asthma Paternal grandfather Problem (finding) hypertension Father Problem (finding) hypertension Payers Payer name Insurance type Covered democrat ID Authoriza tion(s) Medicare Part B MB [id number] [facility] [id number] Social History Type Description Quantity Date Captured Comments Alcohol Use Details Unknown Caffeine Use Details Unknown Tobacco Use Status No Information Smoking Status No Information Sex Male Chief Complaint And Reason For Visit No Information Reason For Referral Reason For Referral No Information Plan Of Treatment Date Type Action Status Goal Tobacco cessation counseling completed Goal Tobacco cessation counseling completed Referral Referred To: transforaminal TESI Ordered: transforaminal TESI T 7-8 and T 8-9 ordered Future Order: Radiology Order MR I - Thoracic Spine W/O Contrast ([id number]), Ordered on: Ordered History Of Present Illness Encounter Date Complaint History Of Prese nt Illness back pain Location of pain is lower back. back pain Location of pain is lower back. Pain is radiated to the left thigh. right shoulder pain Location: ri ght shoulder. The pain radiates to the SHOULDERBLADE. back pain Location of pain is upper back. back pain Severity level i s moderate-severe. The problem is worsening. It occurs persistently. Location of pain is upper back. back pain Location of pain is middle back.There is no radiation of pain. The patient describes the pain as an ache, deep, sharp, shooting, stabbing and throbbing. Symptoms are aggravated by bending, daily activities, extension, lifting, pushing and twisting. Symptoms are relieved by heat and lying down. back pain Severity level i s 2. The problem is improving. It occurs occasionally. Location of pain is middle back.There is no radiation of pain. The patient describes the pain as burning. Symptoms are aggravated by bending and lifting. Symptoms are relieved by heat, ice and sitting. bilateral neck pain The symptoms are reported as being moderate. The symptoms occur constantly. Aggravating factors include work, bending, reaching. Relieving factors include Lying down and Stretching. He states the symptoms are chronic. back pain Severity level i s mild-moderate. The problem is improving. It occurs persistently. Location of pain is lower back.The patient describes the pain as burning. Symptoms are aggravated by bending and reaching. Symptoms are relieved by lying down, rest and sitting. back pain back pain Severity level i s moderate-severe. It occurs persistently. Location of pain is lower back. Pain is radiated to the back and legs.The patient describes the pain as burning. Symptoms are aggravated by moving around and walking. Symptoms are relieved by Laying down. bilateral neck pain back pain Location of pain is upper back. bilateral neck pain The symptoms are reported as being 6. The symptoms occur constantly. The symptoms are described as shooting, stabbing and burning. Aggravating factors include Nothing. Relieving factors include Nothing. He states the symptoms are chronic. bilateral neck pain The symptoms are reported as being severe. The symptoms occur constantly. Aggravating factors include Everything. Relieving factors include Rest. He states the symptoms are chronic and are poorly controlled. Patient states he has cervical and thoracic pain that are shooting and burning and the pain is worse. back pain The problem is s table. It occurs persistently. Location of pain is upper back, middle back and lower back.The patient describes the pain as burning. Symptoms are aggravated by bending, lifting and reaching. Symptoms are relieved by heat, ice, sitting and hot showers. back pain Location of pain is middle back.The patient describes the pain as burning. Symptoms are aggravated by bending, lifting and Reaching. Symptoms are relieved by heat, ice and sitting. back pain Location of pain is upper back. Pain is radiated to the shoulders. bilateral neck pain back pain Severity level i s 6. The problem is worsening. It occurs persistently. Location of pain is upper back, middle back and neck.The patient describes the pain as shooting and stabbing. Symptoms are aggravated by bending and trying to lift myself up. Symptoms are relieved by heat, ice and rest. back pain Location of pain is lower back and neck.There is no radiation of pain. The patient describes the pain as shooting. Symptoms are aggravated by spasms. Symptoms are relieved by ice packs and laying down and hot shower. bilateral neck pain The symptoms are reported as being moderate. Aggravating factors include movement. Relieving factors include Ice and Rest. He states the symptoms are chronic. back pain Severity level i s moderate. The problem is improving. Location of pain is lower back.The patient describes the pain as numbness. Symptoms are aggravated by bending and walking. Symptoms are relieved by ice and rest. back pain Location of pain is lower back. Symptoms are aggravated by bending and lifting. Symptoms are relieved by ice. back pain Location of pain is lower back. Symptoms are aggravated by bending, lifting and stabbing. Symptoms are relieved by ice and lying down. bilateral neck pain back pain Severity level i s moderate. Location of pain is middle back and lower back. Pain is radiated to the right leg and left leg. back pain Severity level i s 5. The problem is worsening. Location of pain is middle back and lower back.The patient describes the pain as stabbing and shocking. Symptoms are aggravated by bending, lifting and pulling. Symptoms are relieved by ice, rest and taking hot showers and using pain rub. Functional Status Date Functional Assessmen t No Information Instructions Date Instruction Additional Infor gonzalo Follow up as needed for reprogramming of your spinal cord stimulator. Continue to monitor for signs of infection. Take your antibiotics until gone. Call with any additional questions. Related to Postlaminectomy syndrome, not elsewhere classified -Consider an IT pain pump trialDiscuss with implant today and receive literature-Follow up in clinic Related to Radiculopathy, thoracic region Same plan of care as statement for above diagnosis, no changes Related to Pain in thoracic spine Same plan of care as statement for above diagnosis, no changes Related to Other spondylosis with radiculopathy, lumbar region -Begin PA for Left I PG battery replacement -Schedule Thoracic Epidural Steroid Injection at T7/8 and T8/9-Follow up in 4 weeks Related to Radiculopathy, thoracic region Assessments Type Assessment Date No Information Patient Care Teams Name Effective Dates (start - stop) Status Members No Information
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
--- NOTE | 2024-07-21 17:32 | ED_ITS ---
HPI - Fall General Time Seen by Provider: 17:32 Date Seen: 07/21/24 Chief Complaint: Fall/Minor Trauma Stated Complaint: Fell hurt left arm, wrist, back and neck Time Seen by Provider: 07/21/24 17:32 Source: patient and RN notes reviewed Mode of arrival: ambulatory Limitations: no limitations History of Present Illness HPI Narrative: This 64-year-old male is ambulatory into the ED with complaints of injuries after falling from a ladder. Upon nursing staff hearing is mechanism, they did appropriately call a trauma team activation. Patient was up on a ladder tri mming tree branches when a branch took out his ladder. He was probably 10 steps up on the ladder, fell from the ladder onto his left side. He feels that he caught himself with the left arm, is complaining of left elbow and left wrist pain. He states he absolutely did not hit his head, no loss of consciousness, no headache. He states he actually has right-sided neck pain but fell on the left side. He has had a history of spinal fusion of both his neck and lumbar back. He is also complaining of low back pain. He has no numbness tingling into his arms from his neck, is having pain in the left arm but it is not coming down from the neck into the arm, is generally there at the elbow and the wrist. He is having no chest wall pain, no difficulty breathing, no abdominal pain. He noted no pelvic pain with ambulation, no pain in his legs, was able to ambulate after the accident, get into the car and drive here. He came in from his car into the ER on his own. His tetanus was last given in 2020. He has a small abrasion or cut on his left elbow, will need to be cleaned up to see if it requires any further intervention. He is allergic to reportedly vinegar and Hymenoptera, specifically honey bee is listed. He has no medication allergies, does have a spinal stimulator which they did turn off. He tolerates pain medicines, has no concerns with any pain medicines. Related Data Home Medications ?Medication ?Instructions ?Recorded ?Confirmed aspirin 81 mg capsule 81 mg PO DAILY 12/27/22 07/21/24 atorvastatin 40 mg tablet 40 mg PO DAILY 12/27/22 07/21/24 gabapentin 300 mg capsule 300 mg PO 3XD 09/17/23 04/11/25 meclizine 25 mg tablet 25 mg PO 3XD PRN vertigo 12/27/22 07/21/24 quetiapine 25 mg tablet 25 mg PO QPM PRN insomnia 12/27/22 07/21/24 valsartan 160 1 tab PO DAILY 12/27/22 07/21/24 mg-hydrochlorothiazide 25 mg tablet albuterol sulfate 90 mcg/actuation 2 puff inhalation QID PRN dyspnea 07/21/24 07/21/24 aerosol inhaler metformin 500 mg tablet,extended 500 mg PO BID 07/21/24 07/21/24 release 24 hr Allergies Allergy/AdvReac Type Severity Reaction Status Date / Time bee venom protein (honey bee) Allergy Severe Anaphylaxis Verified 07/21/24 17:32 Review of Systems Status of ROS: Reports: 6 or more systems reviewed and unremarkable except as noted in History and below PFSH PFS Social History Smoking Status: Former smoker Do you use any of these nicotine containing products: None Second hand tobacco smoke exposure: No How often do you have a drink containing alcohol: never AUDIT-C Alcohol total score: 0 Non-prescribed substance use: marijuana (any form) service: No Exam Const: Vital Signs, click to edit/add: Vital Signs - 24 hr 07/21/24 17:32 07/21/24 17:46 07/21/24 18:09 Temperature 98.5 F Pulse Rate 109 H 99 Pulse Rate [Pulse Oximeter] 121 H Respiratory Rate 24 Blood Pressure 156/111 H Blood Pressure [Ri ght Upper Arm] 158/103 H Pulse Oximetry 94 94 96 Oxygen Delivery Me thod Room Air 07/21/24 18:11 07/21/24 18:15 07/21/24 18:21 Temperature Pulse Rate 101 H 95 Pulse Rate [Pulse Oximeter] Respiratory Rate 19 Blood Pressure 133/88 149/89 H Blood Pressure [Ri ght Upper Arm] Pulse Oximetry 95 94 93 Oxygen Delivery Me thod On primary survey, GCS 15/15. Patient is sitting up on the bed, somewhat uncomfortable appearing but airways patent, speaking in full sentences, breathing independently. Small non active bleeding wound over his left elbow otherwise no concerns for any circulatory compromise. No neurologic disability noted at this time. Secondary survey: With stability of his initial presentation, did move into full physical examination. He has some saw dust remains scattered in his hair. His head is nontender, note no wounds. No drainage from his ears or nares. F al atraumatic, sclera clear, conjugate gaze, extraocular muscles intact. Able speak in complete sentences. Is holding his neck and had to his right side. No midline tenderness of his cervical spine did but does complain of right paraspinous tenderness, nothing on the left. No pain over shoulders on palpation, no effusions, clavicles intact. Back inspected, no traumatic change, does complain of upper lumbar to mid lumbar pain in general both centrally and paraspinally but no overlying traumatic change noted. Spine nontender elsewhere. Lungs are clear, good air entry, no wheezing or crackles, no tachypnea. CV regular rate and rhythm normal S1-S2, no S3-S4. Abdomen is obese but soft, nontender. Patient has either abrasion, possibly small laceration with some blood but no active concerning bleeding overlying the left posterolateral elbow. He is holding this left arm at his side, complains of pain on palpation of his elbow, unclear if it is just the wound or if there is underlying bony pain, no significant swelling of the elbow noted at this time. Humerus above the elbow seems to palpate nontender. His forearm does not seem to have significant tenderness but is you get down to his left wrist he is globally tender, maybe some swelling noted there. Holding his hand still. But distal neurovascular intact. Fully mobile wall in his right upper extremity, no complaints of pain in his lower extremities. Patient holding his neck to the right, does not want to straighten it out, holding in a position of comfort for himself and no noted neurologic disability at this time. I do feel that attempting to make him straight in his neck out in trying to place a cervical collar might actually be more detrimental than beneficial at this time. We will give him some pain management, get appropriate imaging done. Documenting provider has reviewed patient's vital signs: yes Course Course ED Course: Patient is sustained a significant fall and potential trauma. Will get cervical spine imaging, lumbar imaging with CT. Do a screening portable chest x-ray, obtain imaging of his left elbow and wrist. Rule out fracture with these imaging studies. Will re-evaluate, may need to pursue other imaging based on his course in the ED. will have him on pulse oximetry, established an IV, will try to give him some pain management initially with 4 mg IV morphine and medicate for nausea with Zofran 4 mg IV. Reevaluation(s) Time of Reevaluation #1: 18:35 Reevaluation #1: Patient requesting more pain management, will give another dose of IV morphine. Have briefly looked at of his chest imaging, elbow imaging and wrist imaging, do not appreciate any definite significant traumatic change on this. Awaiting Radiology over-read. Time of Reevaluation #2: 19:04 Reevaluation #2: Have reviewed normal imaging with patient. He absolutely has no tenderness over the radial head, his pain is on the posterior aspect of his elbow where he has a 1 cm laceration on further inspection. This was anesthetized locally with 4 mL of 1% lidocaine with epinephrine. Will have ED staff irrigate the wound and then will plan for closure with sutures. Time of Reevaluation #3: 19:21 Reevaluation #3: Just completed repair of his elbow. Standard sterile technique was observed. He still had good anesthesia from my initial infiltration. There was about a 1.25 cm curvilinear laceration over the elbow into the subcutaneous tissue but not deeper. For simple interrupted sutures using 3-0 Ethilon were placed with good wound approximation. There was no bleeding, patient tolerated procedure well. Vital Signs Vital signs: Initial Vital Signs Temperature 98.5 F 07/21/24 17:32 Temperature Source Temporal Artery Scan 07/21/24 17:32 Pulse Rate 121 H 07/21/24 17:32 Respiratory Rate 24 07/21/24 17:32 Blood Pressure 158/103 H 07/21/24 17:32 Blood Pressure Mean 121 H 07/21/24 17:32 Blood Pressure Position Sitting 07/21/24 17:32 Pulse Oximetry 94 07/21/24 17:32 Oxygen Delivery Method Room Air 07/21/24 17:32 Vital Signs Temperature 98.5 F 07/21/24 17:32 Pulse Rate 121 H 07/21/24 17:32 Respiratory Rate 24 07/21/24 17:32 Blood Pressure 158/103 H 07/21/24 17:32 Pulse Oximetry 94 07/21/24 17:32 Oxygen Delivery Method Room Air 07/21/24 17:32 Temperature 98.5 F 07/21/24 17:32 Pulse Rate 95 07/21/24 18:21 Respiratory Rate 19 07/21/24 18:15 Blood Pressure 149/89 H 07/21/24 18:21 Pulse Oximetry 93 07/21/24 18:21 Oxygen Delivery Method Room Air 07/21/24 17:32 Medications Administered Medications: Discontinued Medications Generic Name Dose Route Start Last Admin Trade Name Patty PRN Reason Stop Dose Admin Morphine Sulfate 4 mg 07/21/24 17:37 07/21/24 17:43 Morphine 4 Mg/Ml Inj IVP 07/21/24 17:38 4 mg ONCE ONE Administration Morphine Sulfate 4 mg 07/21/24 18:35 07/21/24 18:44 Morphine 4 Mg/Ml Inj IVP 07/21/24 18:36 4 mg ONCE ONE Administration Ondansetron HCl 4 mg 07/21/24 17:37 07/21/24 17:43 Ondansetron 2 Mg/Ml Inj IVP 07/21/24 17:38 4 mg ONCE ONE Administration MDM - Fall Imaging Data CT cervical spine: Attestation: I have reviewed the pertinent imaging results. Radiologist's impression: Patient: ETELVINA LI Facility:?[facility] Patient ID:?[id number] Site Patient ID:?[id number]. Site :?1960 Study:?CT-Spine Cervical WITHOUT TTA-07/21/2024 6:18:30 PM Ordering Physician:Alivia Bacon Final Report: INDICATION: Trauma. TECHNIQUE: CT cervical spine without contrast. COMPARISON: None. FINDINGS: Vertebrae: C5-6 ACDF. Alignment is normal. There are no fractures or suspicious bony lesions. Discs and facet joints: There are diffuse degenerative changes in the disc spaces and facet joints. Extraspinal findings: Paraspinous soft tissues are unremarkable. IMPRESSION: 1. No sign of acute injury. 2. Multilevel degenerative spondylosis. Please note that all CT scans at this facility use dose modulation, iterative reconstruction, and/or weight-based dosing when appropriate to reduce radiation dose to as low as reasonably achievable. Dictated by Darius Saavedra MD @ 07/21/2024 6:40:49 PM (Electronic Signature) CT lumbar spine: Attestation: I have reviewed the pertinent imaging results. Radiologist's impression: Patient: ETELVINA LI Facility:?[facility] Patient ID:?[id number] Site Patient ID:?[id number]. Site :?1960 Study:?CT-Spine Lumbar WITHOUT TTA-07/21/2024 6:17:14 PM Ordering Physician:Alivia Bacon Final Report: INDICATION: Trauma. TECHNIQUE: CT lumbar spine without contrast. COMPARISON: None. FINDINGS: Vertebrae: Posterior L4-L5 hardware fixation. Alignment is normal. There are no displaced fractures or suspicious bony lesions. Discs and facet joints: Multilevel degenerative disc disease and facet arthropathy. Extraspinal findings: Prevertebral soft tissues and visualized retroperitoneum are unremarkable. IMPRESSION: No acute displaced fractures or static subluxation of the lumbar spine. Multilevel degenerative disc disease and facet arthropathy. Please note that all CT scans at this facility use dose modulation, iterative reconstruction, and/or weight-based dosing when appropriate to reduce radiation dose to as low as reasonably achievable. Dictated by Darius Saavedra MD @ 07/21/2024 6:36:35 PM (Electronic Signature) XR left elbow: Attestation: I have reviewed the pertinent imaging results. My impression: I do not appreciate any definite fractures on my visualization of the elbow. Radiologist's impression: Patient: ETELVINA LI Facility:?[facility] Patient ID:?[id number] Site Patient ID:?[id number]. Site :?1960 Study:?XRay-Extremity Left ELBOW 3 VIEWS-07/21/2024 6:19:44 PM Ordering Physician:?Andrew Bacon Final Report: Indication: Trauma. Technique: Left elbow, 3 views. Comparison: None. Findings/Impression: Bones: Alignment is normal. Subtle lucency along the medial aspect of the radial head, possibly nutrient channel in the absence of joint effusion. Recommend correlation with point tenderness to exclude nondisplaced fracture. Otherwise no displaced fractures or bone lesions. Joint spaces: Unremarkable. Soft tissues: Unremarkable. Dictated by Darius Saavedra MD @ 07/21/2024 6:43:35 PM (Electronic Signature) XR left wrist: Attestation: I have reviewed the pertinent imaging results. My impression: I do not appreciate any acute fracture my preliminary review. Radiologist's impression: Patient: ETELVINA LI Facility:?[facility] Patient ID:?[id number] Site Patient ID:?[id number]. Site :?1960 Study:?XRay-Extremity Left WRIST 3 VIEWS TTA-07/21/2024 6:20:43 PM Ordering Physician:Alivia Bacon Final Report: INDICATION: Left wrist pain, injury, fall, pain TECHNIQUE: Wrist radiograph 3 views left COMPARISON: None FINDINGS: Bone: No acute fractures or aggressive bone lesions are identified. Joint: The radiocarpal, carpal, and carpometacarpal joints are unremarkable in appearance. Soft tissue: Unremarkable. No radiopaque foreign bodies are seen. IMPRESSION: 1. No acute osseous injuries or abnormalities are noted. Dictated by: Tavo Leggett MD @ 07/21/2024 18:34:49 (Electronic Signature) Chest x-ray: Attestation: I have reviewed the pertinent imaging results. Radiologist's impression: Patient: ETELVINA LI Facility:?[facility] Patient ID:?[id number] Site Patient ID:?[id number]. Site :?1960 Study:?XRay-Chest 1 VIEW TTA-07/21/2024 6:16:19 PM Ordering Physician:Alivia Bacon Final Report: INDICATION: Chest pain. Fall. TECHNIQUE: Chest 1 views. COMPARISON: None. FINDINGS: Cardiovascular and mediastinum: Heart size and vasculature are normal in caliber and appearance. Lungs and pleural spaces: No sign of infiltrate or mass. No sign of pleural effusion. No pneumothorax. Bones and soft tissues: No significant findings. IMPRESSION: No acute or significant findings. Dictated by Darius Saavedra MD @ 07/21/2024 6:32:45 PM (Electronic Signature) Discharge Plan Discharge Clinical Impression: Fall Qualifiers: Encounter type: initial encounter Qualified Code(s): W19.XXXA - Unspecified fall, initial encounter Cervical strain, acute Qualifiers: Encounter type: initial encounter Qualified Code(s): S16.1XXA - Strain of muscle, fascia and tendon at neck level, initial encounter Lumbar strain Qualifiers: Encounter type: initial encounter Qualified Code(s): S39.012A - Strain of muscle, fascia and tendon of lower back, initial encounter Laceration of elbow, left Qualifiers: Encounter type: initial encounter Qualified Code(s): S51.012A - Laceration without foreign body of left elbow, initial encounter Patient Disposition: Home, Self-Care Condition: Stable Instructions: Cervical Strain (ED), Laceration (ED), Low Back Strain (ED) Additional Instructions: Use bandages and bacitracin to the elbow laceration couple times daily until wound is healed. Need to follow up in clinic in about 7-10 days to assess the wound for suture removal, please schedule that appointment. There is concerned about wound infection, please seek re-evaluation. Recommend Tylenol 1000 mg 3 times a day baseline for pain. Can use ice to painful areas; if ice is bothering any specific area, can try heat instead. If you have new or concerning problems after the fall, have pain in an area that was not evaluated today, please seek re-evaluation. Fifteen tablets of Flexeril from [employer] and 4 tablets of oxycodone provided, follow dosing instructions. Activity Level: Activity as Tolerated Prescriptions: No Action albuterol sulfate 90 mcg/actuation HFA aerosol inhaler 2 puff INHALATION QID PRN (Reason: dyspnea) metformin 500 mg tablet extended release 24 hr 500 mg PO BID quetiapine 25 mg tablet 25 mg PO QPM PRN (Reason: insomnia) atorvastatin 40 mg tablet 40 mg PO DAILY meclizine 25 mg tablet 25 mg PO 3XD PRN (Reason: vertigo) gabapentin 300 mg capsule 300 mg PO 3XD valsartan-hydrochlorothiazide 160-25 mg tablet 1 tab PO DAILY aspirin 81 mg capsule 81 mg PO DAILY Follow Up/Referrals: Provider,Not a Local [Primary Care Provider] - Stand Alone Forms: [facility] Info Instructions
--- NOTE | 2024-07-21 17:37 | CRLHL7_ITS ---
For Patients: As a result of the Century Cures Act, medical imaging exams and procedure reports are released immediately into your electronic medical record. You may view this report before your referring provider. If you have questions, please contact your health care provider. Indication: Trauma. Technique: Left elbow, 3 views. Comparison: None. Findings/Impression: Bones: Alignment is normal. Subtle lucency along the medial aspect of the radial head, possibly nutrient channel in the absence of joint effusion. Recommend correlation with point tenderness to exclude nondisplaced fracture. Otherwise no displaced fractures or bone lesions. Joint spaces: Unremarkable. Soft tissues: Unremarkable. Dictated by Darius Saavedra MD @ 07/21/2024 6:43:35 PM (Electronically Signed)
--- NOTE | 2024-07-21 17:37 | CRLHL7_ITS ---
For Patients: As a result of the Century Cures Act, medical imaging exams and procedure reports are released immediately into your electronic medical record. You may view this report before your referring provider. If you have questions, please contact your health care provider. INDICATION: Chest pain. Fall. TECHNIQUE: Chest 1 views. COMPARISON: None. FINDINGS: Cardiovascular and mediastinum: Heart size and vasculature are normal in caliber and appearance. Lungs and pleural spaces: No sign of infiltrate or mass. No sign of pleural effusion. No pneumothorax. Bones and soft tissues: No significant findings. IMPRESSION: No acute or significant findings. Dictated by Darius Saavedra MD @ 07/21/2024 6:32:45 PM (Electronically Signed)
--- NOTE | 2024-07-21 17:37 | CRLHL7_ITS ---
For Patients: As a result of the Century Cures Act, medical imaging exams and procedure reports are released immediately into your electronic medical record. You may view this report before your referring provider. If you have questions, please contact your health care provider. INDICATION: Trauma. TECHNIQUE: CT lumbar spine without contrast. COMPARISON: None. FINDINGS: Vertebrae: Posterior L4-L5 hardware fixation. Alignment is normal. There are no displaced fractures or suspicious bony lesions. Discs and facet joints: Multilevel degenerative disc disease and facet arthropathy. Extraspinal findings: Prevertebral soft tissues and visualized retroperitoneum are unremarkable. IMPRESSION: No acute displaced fractures or static subluxation of the lumbar spine. Multilevel degenerative disc disease and facet arthropathy. Please note that all CT scans at this facility use dose modulation, iterative reconstruction, and/or weight-based dosing when appropriate to reduce radiation dose to as low as reasonably achievable. Dictated by Darius Saavedra MD @ 07/21/2024 6:36:35 PM (Electronically Signed)
--- NOTE | 2024-07-21 17:37 | CRLHL7_ITS ---
For Patients: As a result of the Cures Act, medical imaging exams and procedure reports are released immediately into your electronic medical record. You may view this report before your referring provider. If you have questions, please contact your health care provider. INDICATION: Left wrist pain, injury, fall, pain TECHNIQUE: Wrist radiograph 3 views left COMPARISON: None FINDINGS: Bone: No acute fractures or aggressive bone lesions are identified. Joint: The radiocarpal, carpal, and carpometacarpal joints are unremarkable in appearance. Soft tissue: Unremarkable. No radiopaque foreign bodies are seen. IMPRESSION: 1. No acute osseous injuries or abnormalities are noted. Dictated by: Tavo Leggett MD @ 07/21/2024 18:34:49 (Electronically Signed)
--- NOTE | 2024-07-21 17:37 | CRLHL7_ITS ---
For Patients: As a result of the Century Cures Act, medical imaging exams and procedure reports are released immediately into your electronic medical record. You may view this report before your referring provider. If you have questions, please contact your health care provider. INDICATION: Trauma. TECHNIQUE: CT cervical spine without contrast. COMPARISON: None. FINDINGS: Vertebrae: C5-6 ACDF. Alignment is normal. There are no fractures or suspicious bony lesions. Discs and facet joints: There are diffuse degenerative changes in the disc spaces and facet joints. Extraspinal findings: Paraspinous soft tissues are unremarkable. IMPRESSION: 1. No sign of acute injury. 2. Multilevel degenerative spondylosis. Please note that all CT scans at this facility use dose modulation, iterative reconstruction, and/or weight-based dosing when appropriate to reduce radiation dose to as low as reasonably achievable. Dictated by Darius Saavedra MD @ 07/21/2024 6:40:49 PM (Electronically Signed)
[2024-07-21] MEDS: MORPHINE 4 MG/ML INJ IVP ×2 (17:43→18:44)
[2024-07-21] MEDS: ONDANSETRON 2 MG/ML inj 4 MG IVP (17:43)
--- OUTSIDE RECORDS SUMMARY | 2024-07-21 18:17 | XMS_ITS | Continuity of Care Document ---
Author Organization [facility] Address [address] [place] [address] Phone Care Team Providers Care Candy Feeder Name Role Phone Paul Irving MD Unavailable Unavailable Allergies, Adverse Reactions, Alerts Substance Reaction Status Criticality cider vinegar Swelling, Throat Closes Active No Information venom-honey bee anaphylaxis Active No Informati on Medications Medication Instructions Dosage Effective Dates (start - stop) Status Comments EpiPen 2-Franko 0.3 mg/0.3 mL (1:1,000) injection,auto-injec tor inject 0.3 milliliter by intramuscular route once as needed for anaphylaxis 0.3 MG - Active Flovent HFA 44 mcg/actuation aerosol inhaler inhale 2 puff by inhalation route 2 times every day - Active Diovan HCT 160 mg-25 mg tablet take 1 tablet by oral route every day 1.00 tablet - Active atorvastatin 40 mg tablet take 1 tablet by oral route every day 40 MG - Active aspirin 81 mg chewable tablet chew 1 tablet by oral route every day 81 MG - Active albuterol sulfate HFA 90 mcg/actuation aerosol inhaler inhale 2 puff by inhalation route every 4 - 6 hours as needed - Active Procedures Procedure Date Pt Seen-No [...] W Reprog Revision Of Spinal Neurostimulator Elect [facility] Revision Of Spinal Neurostimulator Elect [facility] Revise/Remove SCS IPG Adverse Events did not occur Revision Of Spinal Neurostimulator Elect [facility] Revise/Remove SCS (IPG) Est Pt Eval 25 [...] Providers Copied on Encounter DREW Marsh, [address], [place], [place], [address], [place] tel:[phone] [facility] No Information 5 Maria Fernanda Miller. [address], [place], [address], [place]. tel:[phone] Referring Provider: Brent Spence V, [address] [place] [address] [place], [address]. tel:[phone] [facility], [address], [place], [place], [address], [place] tel:[phone] [facility] Postlaminectom y syndrome, not elsewhere classified Fe 2 RN RN. [address], [place], [address], [place]. tel:[phone] Referring Provider: Ancelmo Meraz IV, [address] [place] [address], [address]. tel:[phone] [facility], [address], [place], [address], [place] tel:[phone] [facility] back pain (chief complaint) Postlaminectom y syndrome, not elsewhere classifiedRadi culopathy, thoracic region 1 RN RN. [address], [place], [address], [place]. tel:[phone] Referring Provider: Ancelmo Meraz IV, [facility] [address] [place] [address], [address]. tel:[phone] [facility], [address], [place], [address], [place] tel:[phone] [facility] [place] No Information 1 Shasta Stokes. [address], [place], [address], [place]. tel:[phone] Referring Provider: Ancelmo Meraz IV, [facility]0 [address] [place] [address], [address]. tel:[phone] [facility], [address], [place], [address], [place] tel:[phone] [facility] back pain (chief complaint) Radiculopathy, thoracic regionOther intervertebral disc degeneration, thoracic regionPain in thoracic spineOpioid dependence, uncomplicated 1 [facility]. [address], [place], [place], [address], [place]. tel:[phone] Referring Provider: Sherman Jensen, [address], [place], [address] . tel:[phone] [facility], [address], [place], [place], [address], [place] tel:[phone] [facility] No Information 1 Jono Reynolds. [address], [place], [place], [address], [place]. tel:[phone] Referring Provider: Sherman Jensen, [address], [place], [address] . tel:[phone] [facility], [address], [place], [place], [address], [place] tel:[phone] [facility] No Information 1 Maria Fernanda Whitaker. [address], [place], [place], [address], [place]. tel:[phone] Referring Provider: Sherman Jensen, [address], [place], [address] . tel:[phone] [facility], [address], [place], [address], [place] tel:[phone] [facility] right shoulder pain (chief complaint) Radiculopathy, thoracic regionPain in thoracic spineRadiculop athy, thoracic regionPain in thoracic spine 1 [facility]. [address], [place], [place], [address], [place]. tel:[phone] Referring Provider: Shemran Jensen, [address], [place], [address] . tel:[phone] Est Pt Eval 25 Min [facility], [address], [place], [place], [address], [place] tel:[phone] [facility] back pain (chief complaint) Radiculopathy, thoracic regionOther spondylosis with radiculopathy, lumbar region 1 Lincoln George. [address], [place], [address], [place]. tel:[phone] Referring Provider: Ancelmo Meraz IV, [address] [place] [address], [place], [address]. tel:[phone] [facility], [address], [place], [address], [place] tel:[phone] [facility] back pain (chief complaint) Radiculopathy, thoracic regionIntvrt disc disorders w radiculopathy, thoracic regionPain in thoracic spine 0 [facility]. [address], [place], [place], [address], [place]. tel:[phone] Referring Provider: Sherman Jensen, [address], [place], [address] . tel:[phone] [facility], [address], [place], [place], [address], [place] tel:[phone] [facility] No Information 0 Maria Fernanda Whitaker. [address], [place], [place], [address], [place]. tel:[phone] Referring Provider: Sherman Jensen, [address], [place], [address] . tel:[phone] Est Pt Eval 25 Min [facility], [address], [place], [address], [place] tel:[phone] [facility] pain (chief complaint) Pain in thoracic spinePostlamin ectomy syndrome, not elsewhere classified 0 Maria Fernanda Miller. [address], [place], [address], [place]. tel:[phone] Referring Provider: Ancelmo Meraz IV, [facility]0 [address] [place] [address], [place], [address]. tel:[phone] [facility], [address], [place], [address], [place] tel:[phone] [facility] No Information 0 Maria Fernanda Miller. [address], [place], [address], [place]. tel:[phone] Referring Provider: Ancelmo Meraz IV, [facility]0 [address] [place] [address], [place], [address]. tel:[phone] [facility], [address], [place], [address], [place] tel:[phone] [facility] [address] Pain in thoracic spinePain in thoracic spinePain in thoracic spine Mar-2 3-201 8 Ilana Ledesma. [address], [place], [address], [place]. tel:[phone] Referring Provider: Jane Neal, [address], [place], [address] . tel:[phone] Est Pt Eval 25 Min [facility], [address], [place], [place], [address], [place] tel:[phone] [facility] back pain (chief complaint) Postlaminectom y syndrome, not elsewhere classifiedOthe r cervical disc displacement at C6-C7 levelOther intervertebral disc degeneration, thoracic regionOther intervertebral disc degeneration, lumbar regionOther intervertebral disc degeneration, lumbosacral regionLong term (current) use of opiate analgesic No Information Referring Provider: Jane [place], [address], [place], [address] . tel:[phone] Est Pt Eval 25 Min [facility], [address], [place], [place], [address], [place] tel:[phone] [facility] back pain (chief complaint) bilateral neck pain (chief complaint) Postlaminectom y syndrome, not elsewhere classifiedCerv ical disc disorder at C6-C7 level with radiculopathyO ther intervertebral disc degeneration, thoracic regionOther intervertebral disc degeneration, lumbar regionOther intervertebral disc degeneration, lumbosacral regionLong term (current) use of opiate analgesic No Information Referring Provider: Jane [place], [address], [place], [address] . tel:[phone] [facility], [facility], [address], [place], [place], [address], [place] tel:[phone] [facility] back pain (chief complaint) back pain (chief complaint) Postlaminectom y syndrome, not elsewhere classified Maria Fernanda Whitaker. [address], [place], [place], [address], [place]. tel:[phone] Referring Provider: Jane Neal, [address], [place], [address] . tel:[phone] [facility], [address], [place], [address], [place] tel:[phone] [facility] back pain (chief complaint) bilateral neck pain (chief complaint) Oth complication of nervous system prosth dev/grft, sequelaPostlam inectomy syndrome, not elsewhere classifiedIntv rt disc disorders w radiculopathy, thoracic regionOpioid dependence, uncomplicated [facility]. [address], [place], [place], [address], [place]. tel:[phone] Referring Provider: Sherman Jensen, [address], [place], [address] . tel:[phone] [facility], [address], [place], [place], [address], [place] tel:[phone] [facility] No Information Maria Fernanda Whitaker. [address], [place], [place], [address], [place]. tel:[phone] Referring Provider: Sherman Jensen, [address], [place], [address] . tel:[phone] Est Pt Eval 25 Min [facility], [address], [place], [place], [address], [place] tel:[phone] [facility] bilateral neck pain (chief complaint) Postlaminectom y syndrome, not elsewhere classifiedCerv ical disc disorder at C6-C7 level with radiculopathyO ther intervertebral disc degeneration, thoracic regionOther intervertebral disc degeneration, lumbar regionOther intervertebral disc degeneration, lumbosacral regionLong term (current) use of opiate analgesic No Information Referring Provider: Jane [place], [address], [place], [address] . tel:[phone] [facility], [address], [place], [address], [place] tel:[phone] [facility] [place] No Information Darrian Ward. [address], [place], [place], [address], [place]. tel:[phone] Referring Provider: Aamir Downey, [address] [facility] , [place], [address]. tel:[phone] Est Pt Eval 25 Min [facility], [address], [place], [place], [address], [place] tel:[phone] [facility] bilateral neck pain (chief complaint) Postlaminectom y syndrome, not elsewhere classifiedCerv ical disc disorder at C6-C7 level with radiculopathyO ther intervertebral disc degeneration, thoracic regionOther intervertebral disc degeneration, lumbar regionOther intervertebral disc degeneration, lumbosacral regionLong term (current) use of opiate analgesic 8 No Information Est Pt Eval 25 Min [facility], [address], [place], [place], [address], [place] tel:[phone] [facility] back pain (chief complaint) Postlaminectom y syndrome, not elsewhere classifiedCerv ical disc disorder at C6-C7 level with radiculopathyO ther intervertebral disc degeneration, thoracic regionOther intervertebral disc degeneration, lumbar regionOther intervertebral disc degeneration, lumbosacral regionLong term (current) use of opiate analgesic 7 No Information Referring Provider: Jane [place], [address], [place], [address] . tel:[phone] [facility], [address], [place], [place], [address], [place] tel:[phone] [facility] back pain (chief complaint) Postlaminectom y syndrome, not elsewhere classifiedRadi culopathy, cervical region RN RN. [address], [place], [place], [address], [place]. tel:[phone] Referring Provider: Jane [place], [address], [place], [address] . tel:[phone] [facility], [address], [place], [address], [place] tel:[phone] [facility] back pain (chief complaint) bilateral neck pain (chief complaint) Cervical disc disorder at C6-C7 level with radiculopathyO ther cervical disc displacement at C6-C7 levelCervical disc disorder at C6-C7 level with radiculopathyO ther cervical disc displacement at C6-C7 level 7 Ace Rutledge. [address], [place], [address], [place]. tel:[phone] Referring Provider: Aamir Downey, [address] [facility] [place], [address]. tel:[phone] [facility], [address], [place], [place], [address], [place] tel:[phone] [facility] No Information 7 Ace Rutledge. [address], [facility] [place], [address], [place]. tel:[phone] Referring Provider: Aamir Downey, [address] [facility] [place], [address]. tel:[phone] Est Pt Eval 25 Min [facility], [facility], [address], [place], [place], [address], [place] tel:[phone] [facility] back pain (chief complaint) Postlaminectom y syndrome, not elsewhere classifiedCerv ical disc disorder at C6-C7 level with radiculopathyO ther intervertebral disc degeneration, thoracic regionOther intervertebral disc degeneration, lumbar regionOther intervertebral disc degeneration, lumbosacral regionLong term (current) use of opiate analgesic No Information Referring Provider: Jane [place], [address], [place], [address] . tel:[phone] Est Pt Eval 15 Min [facility], [address], [place], [place], [address], tel:[phone] [facility] back pain (chief complaint) Postlaminectom y syndrome, not elsewhere classifiedOthe r cervical disc displacement at C6-C7 levelOther intervertebral disc degeneration, thoracic regionOther intervertebral disc degeneration, lumbar regionOther intervertebral disc degeneration, lumbosacral regionLong term (current) use of opiate analgesic No Information Referring Provider: Jane [place], [address], [place], [address] . tel:[phone] Est Pt Eval 25 Min [facility], [address], [place], [place], [address], [place] tel:[phone] [facility] bilateral neck pain (chief complaint) back pain (chief complaint) Postlaminectom y syndrome, not elsewhere classifiedOthe r cervical disc displacement at C6-C7 levelOther intervertebral disc degeneration, thoracic regionOther intervertebral disc degeneration, lumbar regionOther intervertebral disc degeneration, lumbosacral regionLong term (current) use of opiate analgesic 7 No Information Referring Provider: Jane [place], [address], [place], [address] . tel:[phone] Est Pt Eval 15 Min [facility], [address], [place], [place], [address], [place] tel:[phone] [facility] back pain (chief complaint) Postlaminectom y syndrome, not elsewhere classifiedOthe r cervical disc displacement at C6-C7 levelOther intervertebral disc degeneration, thoracic regionOther specified dorsopathies, lumbosacral regionOther intervertebral disc degeneration, lumbar regionOther intervertebral disc degeneration, lumbosacral regionLong term (current) use of opiate analgesic No Information Referring Provider: Jane Neal, [address], [place], [address] . tel:[phone] [facility], [address], [place], [place], [address], [place] tel:[phone] [facility] back pain (chief complaint) bilateral neck pain (chief complaint) Postlaminectom y syndrome, not elsewhere classified Sep- RN RN. [address], [place], [place], [address], [place]. tel:[phone] Referring Provider: Jane Neal, [address], [place], [address] . tel:[phone] [facility], [address], [address], [place], [address], [place] tel:[phone] [facility] back pain (chief complaint) Postlaminectom y syndrome, not elsewhere classifiedOthe r spondylosis with radiculopathy, lumbar regionOther cervical disc disord, mid-cervical region, unsp levelOpioid dependence, uncomplicated Sep- [facility]. [address], [place], [place], [address], [place]. tel:[phone] Referring Provider: Sherman Jensen, [address], [place], [address] . tel:[phone] [facility], [address], [place], [place], [address], [place] tel:[phone] [facility] No Information Sep- 7 Maria Fernanda Whitaker. [address], [place], [place], [address], [place]. tel:[phone] Referring Provider: Sherman Jensen, [address], [place], [address] . tel:[phone] Est Pt Eval 25 Min [facility], [address], [place], [place], [address], [place] tel:[phone] [facility] back pain (chief complaint) Other cervical disc displacement at C6-C7 levelOther intervertebral disc degeneration, thoracic regionOther specified dorsopathies, lumbosacral regionOther intervertebral disc degeneration, lumbar regionOther intervertebral disc degeneration, lumbosacral regionLong term (current) use of opiate analgesicPostl aminectomy syndrome, not elsewhere classified No Information Referring Provider: Jane [place], [address], [place], [address] . tel:[phone] Est Pt Eval 25 Min [facility], [address], [place], [place], [address], [place] tel:[phone] [facility] Postlaminectom y syndrome, not elsewhere classifiedOthe r cervical disc displacement at C6-C7 levelOther intervertebral disc degeneration, thoracic regionOther specified dorsopathies, lumbosacral regionOther intervertebral disc degeneration, lumbar regionOther intervertebral disc degeneration, lumbosacral regionLong term (current) use of opiate analgesic No Information Referring Provider: Jane [place], [address], [place], [address] . tel:[phone] Est Pt Eval 25 Min [facility], [address], [place], [place], [address], [place] tel:[phone] [facility] Postlaminectom y syndrome, not elsewhere classifiedOthe r cervical disc displacement at C6-C7 levelOther intervertebral disc degeneration, thoracic regionWeakness Other specified dorsopathies, lumbosacral regionOther intervertebral disc degeneration, lumbar regionOther intervertebral disc degeneration, lumbosacral regionLong term (current) use of opiate analgesic No Information Referring Provider: Jane [place], [address], [place], [address] . tel:[phone] [facility], [address], [place], [place], [address], [place] tel:[phone] [facility] Postlaminectom y syndrome, not elsewhere classified RN RN. [address], [place], [place], [address], [place]. tel:[phone] Referring Provider: Jane [place], [address], [place], [address] . tel:[phone] [facility], [address], [place], [address], [place] tel:[phone] [facility] Cervical disc disorder at C6-C7 level w radiculopathyP ostlaminectomy syndrome, not elsewhere classifiedInte rvertebral disc disorders w radiculopathy, lumbar regionLumbosac ral root disorder [facility]. [address], [place], [place], [address], [place]. tel:[phone] Referring Provider: Sherman Jensen, [address], [place], [address] . tel:[phone] [facility], [address], [place], [place], [address], [place] tel:[phone] [facility] [place] No Information 7 Maria Fernanda Whitaker. [address], [place], [place], [address], [place]. tel:[phone] Referring Provider: Sherman Jensen, [address], [place], [address] . tel:[phone] Est Pt Eval 25 Min [facility], [address], [address], [place] tel:[phone] [facility] Postlaminectom y syndrome, not elsewhere classifiedOthe r cervical disc displacement, at C6-C7 levelOther intervertebral disc degeneration, thoracic regionOther specified dorsopathies, lumbar regionOther specified dorsopathies, lumbosacral regionOther intervertebral disc degeneration, lumbar regionOther intervertebral disc degeneration, lumbosacral regionLong term (current) use of opiate analgesic No Information Referring Provider: Jane [place], [address] [facility] [address], [place], [address] . tel:[phone] [facility], [address], [address], [place] tel:[phone] [facility] Low back painOther intervertebral disc degeneration, lumbar region 9 [facility]. [address] [facility] [address], [place], [address], [place]. tel:[phone] Referring Provider: Sherman Jensen, [address], [place], [address] . tel:[phone] [facility], [address] [facility] [facility] [address], [place], [place], [address], [place] tel:[phone] [facility] No Information 7 Maria Fernanda Whitaker. [address], [place], [place], [address], [place]. tel:[phone] Referring Provider: Sherman Jensen, [address], [place], [address] . tel:[phone] Est Pt Eval 25 Min [facility], [address] [place], [place], [address], tel:[phone] [facility] Postlaminectom y syndrome, not elsewhere classifiedPain in thoracic spineOther intervertebral disc degeneration, thoracic regionOther intervertebral disc degeneration, lumbar regionOther intervertebral disc degeneration, lumbosacral regionOther specified dorsopathies, lumbar regionOther specified dorsopathies, lumbosacral regionLong term (current) use of opiate analgesic No Information Referring Provider: Jane Neal, [address], [place], [address] . tel:[phone] [facility], [address] [facility] [address], [place], [place], [address], tel:[phone] [place] [facility] 7390 No Information [facility] Rina. [address] [facility], [place], [place], [address], [place]. tel:[phone] Referring Provider: Jane Neal, [address], [place], [address] . tel:[phone] Est Pt Eval 25 Min [facility], [address], [place], [place], [id number], [place] tel:[phone] [facility] Other intervertebral disc degeneration, lumbar regionOther intervertebral disc degeneration, lumbosacral regionOther specified dorsopathies, lumbar regionOther specified dorsopathies, lumbosacral regionLong term (current) use of opiate analgesicPostl aminectomy syndrome, not elsewhere classifiedOthe r specified dorsopathies, thoracic regionOther intervertebral disc degeneration, thoracic region No Information Referring Provider: Jane Neal, [address], [place], [address] . tel:[phone] Est Pt Eval 25 Min [facility], [address] [facility] [address], [place], [place], [address], [place] tel:[phone] [facility] Postlaminectom y syndrome, not elsewhere classifiedOthe r specified dorsopathies, thoracic regionOther intervertebral disc degeneration, thoracic regionOther intervertebral disc degeneration, lumbar regionOther intervertebral disc degeneration, lumbosacral regionOther specified dorsopathies, lumbar regionOther specified dorsopathies, lumbosacral regionLong term (current) use of opiate analgesic 7 No Information Referring Provider: Jane Neal, [address], [place], [address] . tel:[phone] Est Pt Eval 25 Min [facility], [address], [place], [place], [address], [place] tel:[phone] [facility] Postlaminectom y syndrome, not elsewhere classifiedOthe r specified dorsopathies, thoracic regionOther intervertebral disc degeneration, thoracic regionOther intervertebral disc degeneration, lumbar regionOther intervertebral disc degeneration, lumbosacral regionOther specified dorsopathies, lumbar regionOther specified dorsopathies, lumbosacral regionLong term (current) use of opiate analgesic 6 No Information [facility], [address], [facility] [address], [place], [address], [place] tel:[phone] [facility] Spondylosis without myelopathy or radiculopathy, thoracic regionOther specified dorsopathies, thoracic regionOther intervertebral disc displacement, thoracic region 6 No Information Est Pt Eval 25 Min [facility], [address], [place], [place], [address], [place] tel:[phone] [facility] Postlaminectom y syndrome, not elsewhere classifiedOthe r intervertebral disc degeneration, thoracic regionSpinal stenosis, cervical regionCervical giaOther specified dorsopathies, thoracic regionSpinal stenosis, lumbar region 6 Carlos Coronel [address], [facility], [place], [address], [place]. tel:[phone] Referring Provider: Jane Neal, [address], [place], [address] . tel:[phone] [facility], [address], [place], [place], [address], [place] tel:[phone] [facility] No Information 6 No Information [facility], [address], [address], [place], [address], [place] tel:[phone] [facility] Spondylosis w/o myelopathy or radiculopathy, thoracic regionOther specified dorsopathies, thoracic region No Information [facility], [address], [place], [place], [address], [place] tel:[phone] [facility] No Information No Information Est Pt Eval 25 Min [facility], [address], [place], [place], [address], [place] tel:[phone] [facility] Postlaminectom y syndrome, not elsewhere classifiedOthe r cervical disc degeneration, cervicothoraci c regionOther intervertebral disc degeneration, thoracic regionSpinal stenosis, cervical regionOther specified dorsopathies, thoracic regionOther intervertebral disc degeneration, lumbar regionOther intervertebral disc degeneration, lumbosacral regionSpinal stenosis, Lumbar regionOther specified dorsopathies lumbar regionOther specified dorsopathies lumbosacral region 6 No Information Referring Provider: Jane Neal, [address], [place], [address] . tel:[phone] [facility]iatric [facility], [address], [place], [place], [address], [place] tel:[phone] [facility] 7390 No Information 6 Rodrigo Ivory. [address], [address], [place], [place], [address], [place]. tel:[phone] Referring Provider: Jane Neal, [address], [place], [address] . tel:[phone] [facility], [address], [address], [place], [address], [place] tel:[phone] [facility] [place] Other specified dorsopathies, thoracic regionSpondylo sis w/o myelopathy or radiculopathy, thoracic region Oct-0 7 6 No Information [facility], [address], [place], [place], [address], [place] tel:[phone] [facility] No Information 6 No Information [facility], [address], [place], [address], [place] tel:[phone] [facility] Other specified dorsopathies, thoracic regionSpondylo sis without myelopathy or radiculopathy, thoracic region Sep-1 6 No Information [facility], [address], [place], [place], [address], [place] tel:[phone] [facility] 7390 No Information Sep-1 6 Volodymyr Lara. [address], [address], [place], [place], [address], [place]. tel:[phone] Referring Provider: Jane Neal, [address], [place], [address] . tel:[phone] Est Pt Eval 25 Min [facility], [address], [place], [place], [address], [place] tel:[phone] [facility] Postlaminectom y syndrome, not elsewhere classifiedOthe r cervical disc degeneration, cervicothoraci c regionSpinal stenosis, cervical regionOther intervertebral disc degeneration, thoracic regionOther intervertebral disc degeneration, lumbar regionOther intervertebral disc degeneration, lumbosacral regionSpinal stenosis, Lumbar regionOther specified dorsopathies lumbar regionOther specified dorsopathies lumbosacral regionLong term (current) use of opiate analgesic No Information Referring Provider: Jane Neal, [address], [place], [address] . tel:[phone] [facility], [facility], [address], [place], [place], [address], [place] tel:[phone] [facility] No Information No Information Est Pt Eval 25 Min [facility], [facility], [address], [place], [place], [address], [place] tel:[phone] [facility] Postlaminectom y syndrome, not elsewhere classifiedOthe r cervical disc degeneration, cervicothoraci c regionSpinal stenosis, cervical regionOther intervertebral disc degeneration, thoracic regionOther intervertebral disc degeneration, lumbar regionOther intervertebral disc degeneration, lumbosacral regionSpinal stenosis, Lumbar regionOther specified dorsopathies lumbar regionOther specified dorsopathies lumbosacral regionLong term (current) use of opiate analgesic No Information Referring Provider: Jane Neal, [address], [place], [address] . tel:[phone] [facility], [address], [place], [address], [place] tel:[phone] [facility] Other intervertebral disc degeneration, thoracic regionOther intervertebral disc displacement, thoracic region No Information [facility], [address], [place], [place], [address], [place] tel:[phone] [facility] No Information No Information Est Pt Eval 25 Min [facility], [address], [place], [place], [address], [place] tel:[phone] [facility] Postlaminectom y syndrome, not elsewhere classifiedOthe r cervical disc degeneration, cervicothoraci c regionSpinal stenosis, cervical regionOther intervertebral disc degeneration, thoracic regionOther intervertebral disc degeneration, lumbar regionOther intervertebral disc degeneration, lumbosacral regionSpinal stenosis, Lumbar regionOther specified dorsopathies lumbar regionOther specified dorsopathies lumbosacral regionLong term (current) use of opiate analgesic 6 No Information Referring Provider: Jane Neal, [address], [place], [address] . tel:[phone] [facility], [address], [place], [address], [place] tel:[phone] [facility] Pain in thoracic spineOther intervertebral disc degeneration, thoracic regionPostlami nectomy syndrome, not elsewhere classifiedOthe r intervertebral disc degeneration, lumbar region 6 No Information Est Pt Eval 25 Min [facility], [address], [place], [place], [address], [place] tel:[phone] [facility] Postlaminectom y syndrome, not elsewhere classifiedOthe r cervical disc degeneration, mid-cervical regionSpinal stenosis, cervical regionOther intervertebral disc degeneration, thoracic regionSpinal stenosis, Lumbar regionSpinal stenosis, Lumbosacral regionOther intervertebral disc degeneration, lumbar regionOther intervertebral disc degeneration, lumbosacral regionOther specified dorsopathies lumbar regionLong term (current) use of opiate analgesic 6 No Information Ancelmo Meraz IV. [facility], [address], [place], [place], [address], tel:[phone] [facility] No Information 6 No Information Est Pt Eval 15 Min [facility], [address], [place], [place], [address], [place] tel:[phone] [facility] Postlaminectom y syndrome, not elsewhere classifiedPain in thoracic spineOther intervertebral disc degeneration, lumbar region 6 Openda Reid. [address], [place], [address], [place]. tel:[phone] Referring Provider: Jane Neal, [address], [place], [address] . tel:[phone] Est Pt Eval 15 Min [facility], [address], [place], [place], [address], [place] tel:[phone] [facility] Pain in thoracic spineOther intervertebral disc degeneration, lumbar regionPostlami nectomy syndrome, not elsewhere classified Op[facility] Reid. [address], [place], [address], [place]. tel:[phone] Referring Provider: Jane Neal, [address], [place], [address] . tel:[phone] [facility], [address], [address], [place], [address], [place] tel:[phone] [facility] Pain in thoracic spineOther intervertebral disc degeneration, lumbar region No Information [facility], [address], [place], [place], [address], [place] tel:[phone] [facility] No Information No Information Referring Provider: Jane Neal, [address], [place], [address] . tel:[phone] Est Pt Eval 15 Min [facility], [address], [place], [place], [address], [place] tel:[phone] [facility] Pain in thoracic spineOther intervertebral disc degeneration, lumbar regionOpioid dependence, uncomplicated Openda Reid. [address], [place], [address], [place]. tel:[phone] Referring Provider: Jane Neal, [address], [place], [address] . tel:[phone] [facility], [address], [address], [place], [address], [place] tel:[phone] [facility] Pain in thoracic spine No Information [facility], [address], [place], [place], [address], [place] tel:[phone] [facility] [place] No Information No Information Referring Provider: Jane Neal, [address], [place], [address] . tel:[phone] [facility], [address], [address], [place], [address], [place] tel:[phone] [facility] Intervertebral disc disorders with radiculopathy, lumbosacral regionOther spondylosis with radiculopathy, lumbar region No Information [facility], [address], [place], [place], [address], [place] tel:[phone] [facility] No Information No Information Referring Provider: Jane Neal, [address], [place], [address] . tel:[phone] [facility], [address], [place], [place], [address], [place] tel:[phone] [facility] 7390 No Information 5 Volodymyr Lara. [address] [facility], [address], [place], [place], [address], [place]. tel:[phone] Referring Provider: Jane Neal, [address], [place], [address] . tel:[phone] [facility], [address], [place], [address], [place] tel:[phone] [facility] Intervertebral disc disorders with radiculopathy, lumbosacral regionOther spondylosis with radiculopathy, lumbar region 5 No Information [facility], [facility], [address], [place], [place], [address], [place] tel:[phone] [facility] No Information 5 No Information New Pt Eval 45 Min [facility], [address], [place], [place], [address], [place] tel:[phone] [facility] Intervertebral disc disorders with radiculopathy, lumbosacral regionOther spondylosis with radiculopathy, lumbar regionPain in thoracic spine 5 No Information Family History Family Member Type Diagnosis Age At Onset Paternal grandfather Problem (finding) Cancer Paternal grandfather Problem (finding) Diabetes mellit us Son Problem (finding) asthma Paternal grandfather Problem (finding) hypertension Father Problem (finding) hypertension Payers Payer name Insurance type Covered democrat ID Authoriza tion(s) Medicare Part B [id number] [facility] [id number] Social History Type Description Quantity Date Captured [...] MR I - Thoracic Spine W/O Contrast ([id number]), Ordered on: Ordered History Of Present Illness [...]
--- OUTSIDE RECORDS SUMMARY | 2024-07-21 18:18 | XMS_ITS | Clinical Summary ---
Author Organization [facility] Address [address] [place] [address] Care Team Providers Care Before School Babysitter Name Role Phone Loretta Haas MD Primary [...] - 07/20/2024 11:59 PM CDT Hospital Encounter [address] [address] Loretta Haas MD Encounter for screening for lung cancer; Former cigarette smoker 07/20/2024 Travel from Last 3 Months Immunizations Immunization Administration Dates Next Due COVID-19 vaccine ([employer] 30mcg/0.3mL) 12YO+ BIVALENT PF, MDV 06/11/2022 COVID-19 vaccine ([employer] NTech 30mcg/0.3mL) 12YO+ ARINA-SUCROSE PF, MDV 12/12/2021,06/11/2021 COVID-19 vaccine ([employer] 30mcg/0.3mL) P F, MDV 11/25/2020,10/21/2020 Influenza, IIV4 [...] on file Legal Sex Male 12:29 PM SPECIALTY FINISHING UTILITY PERSON Gender Identity Not on file Sexual Orientation Not on file Obstetrics History Last Filed Vital Signs Vital Sign Reading Time Taken Comments Blood Pressure 134/84 02/23/2024 10:46 AM SPECIALTY FINISHING UTILITY PERSON Pulse 72 02/23/2024 10:46 AM SPECIALTY FINISHING UTILITY PERSON Temperature 36.1 C (97 F) 07/14/2023 9:58 AM CDT Respiratory Rate 16 07/14/2023 11:3 0 AM CDT Oxygen Saturation 95% 02/23/2024 10: 46 AM SPECIALTY FINISHING UTILITY PERSON Inhaled Oxygen Concentration - - Weight 100.9 kg (222 lb 8 oz) 10:46 AM SPECIALTY FINISHING UTILITY PERSON Height 179.7 cm (5' 10.75) 11/22/2023 10:44 [...] age 77 07/13/202807/13, 10/05/2017 (Completed outside of [facility]), 10/10/2012, Additional history exists Lipids for age [...] HIV-1/O/2, 4TH GENERATION Routine 06/11/2022 11:15 AM SPECIALTY FINISHING UTILITY PERSON Encounter for screening for HIV ANTI HCV Routine 06/11/2021 11:19 AM SPECIALTY FINISHING UTILITY PERSON Need for hepatitis C screening test from [...] 100 - 199 mg/dL 08/18/2023 10:58 AM [facility] Comment: Cholesterol, Total Reference Ranges Desirable <200 mg/dL Borderline 200-239 mg/dL High >=240 mg/dL TRIGLYCERIDES 85 <150 mg/dL 08/18/2023 10:58 AM [facility] HDL CHOLESTEROL 36(L) >40 mg/dL 10:58 AM [facility] NON-HDL CHOLESTEROL 79 <145 mg/dl 08/18/2023 10:58 AM [facility] CHOL/HDL RATIO 3.19 <4.50 08/18/2023 10:58 AM [facility] LDL CHOLESTEROL 62 <=130 mg/dL 08/18/2023 10:58 AM [facility] VLDL CHOLESTEROL 17 <=30 mg/dL 08/18/2023 10:58 AM [facility] PROVIDER ORDERED STATUS RANDOM 08/18/2023 10:58 AM [facility] Blood BLOOD SPECIMEN / Unknown Venipuncture / Unknown 08/18/2023 10:32 AM CDT 08/18/2023 10:34 AM CDT Brent Rodriguez MD CHEMISTRY Final Result [facility] [address] [place] [address] * COLONOSCOPY (07/14/2023 9:36 AM CDT) 07/14/2023 9:36 AM CDT Narrative Transcriptions Lorenzo Malik MD - 07/14/2023 11:04 AM CDT Patient Name: Dylan Corley Procedure Date: 07/14/2023 Gender: Male Date of : 1960 Admit Type: Ambulatory Procedure: Colonoscopy Proceduralist: Lorenzo Malik MD [facility] MD: Brent Rodriguez Indications/Pre-Op Diagnosis: High risk colon cancer surveillance:Personal history of colonic polyps Medications: Propofol per Anesthesia Procedure Description: The patient had risks, benefits and alternatives explained to andgave informed consent. The patient had a stable cardiopulmonary status and judged an adequate candidate for conscious sedation. The endoscope [id number] was passed through the anus andadvanced to [...] LC HIV-1/O/2, 4TH GENERATION (06/11/2022 11:15 AM SPECIALTY FINISHING UTILITY PERSON) HIV Scr 4th Gen Non Reactive Non Reactive 06/14/2022 7:35 AM [facility] Comment: HIV Negative HIV-1/HIV-2 antibodies and HIV-1 p24 antigen were NOT detected. There is no laboratory evidence of HIV infection. Blood BLOOD SPECIMEN / Unknown Venipuncture / Unknown 06/11/2022 11:15 AM SPECIALTY FINISHING UTILITY PERSON 06/11/2022 11:16 AM SPECIALTY FINISHING UTILITY PERSON Narrative [facility] - 06/14/2022 7:35 AM SPECIALTY FINISHING UTILITY PERSON Performed at: [address] [place] [id number] Heading Matcher And Assembler: Johnnie Cantu MD, Phone: [phone] Brent Rodriguez MD LABORATORY Final Result [facility] [address] [place] [address], [place] * ANTI HCV (06/11/2021 11:19 AM SPECIALTY FINISHING UTILITY PERSON) HEPATITIS C ANTIBODY Non-React checo Non-React checo 06/12/2021 12:12 AM SPECIALTY FINISHING UTILITY PERSON [facility] Comment:Antibodies to HCV no t detected; does not exclude the possibility of exposure to HCV. Blood BLOOD SPECIMEN / Unknown Venipuncture / Unknown 06/11/2021 11:19 AM SPECIALTY FINISHING UTILITY PERSON 06/11/2021 11:33 AM SPECIALTY FINISHING UTILITY PERSON us Brent Rodriguez MD SEND OUTS Final Result [facility] [address] [place] [address], from Last 3 Months or Most Recently Relevant to Health Maintenance Insurance MEDICARE [place] ONLY MEDICARE PART B HB ONLY MEDICARE PART A HB ONLY [employer] [place] BLUE HB ONLY Advance Directives * Full Code (Latest Code Status on File) Date Activated Date Inactivated Comments 07/14/2023 9:55 AM 07/14/2023 2:19 PM Question Answer Comments Code Status Discussion: Discussed Care Teams Before School Babysitter Relationship Specialty Start Date End Date Loretta Haas MD [address] [facility] [place] [address] PCP - General Family Practice 11/22/23
[2024-07-21] MEDS: LIDOCAINE 1%-EPI 1:100,000 4 ML INFILTRATI (19:49)
== END 2024-07-21 19:51 | disposition home or self-care (01) ==
PROVIDERS: Emergency Provider Family Medicine
DX: S51.012A Laceration without foreign body of left elbow, initial encounter (principal); S39.012A Strain of muscle, fascia and tendon of lower back, initial encounter; S16.1XXA Strain of muscle, fascia and tendon at neck level, initial encounter; W11.XXXA Fall on and from ladder, initial encounter
CPT/HCPCS: 12001; 71045; 72125; 72131; 73080; 73110; 94761; 96374; 96375; 96376; 99284; 99291; G0390; J2270; J2405